=== PATIENT | female | born 1985 | race Caucasian/White ===

== ENCOUNTER 2018-10-20 20:03 | Emergency (ER) | payer BC ==
[2018-10-20 21:50] LABS: CHLORIDE,CL 104 mmol/L (98-107); SODIUM,NA 138 mmol/L (136-145)
--- NOTE | 2018-10-20 22:18 | EDM.PDOC ---
ED HPI GENERAL MEDICAL PROBLEM - General Chief Complaint: Chest Pain Stated Complaint: CHEST PAINS, SHORTNESS IN BREATH Time Seen by Provider: 10/20/18 20:10 Source of Information: Reports: Patient History Limitations: Reports: No Limitations - History of Present Illness INITIAL COMMENTS - FREE TEXT/NARRATIVE: Presents to the emergency room reporting skipped beats. She states that she had this once previously and she told was told she had a panic attack after evaluation. In that event it was palpitations now she states she has skipped beats. She reports no recent anxiety or stress. When she is on her week on work she drinks a pot of coffee per 12 hour shift. On her days off she drinks much less. She denies other drug use. chest Pain Score (Numeric/FACES): 2 - Related Data Allergies Allergy/AdvReac Type Severity Reaction Status Date / Time No Known Allergies Allergy Verified 10/20/18 20:16 Home Meds: Home Meds . 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: Musculoskeletal History: Reports: None Neurological History: Reports: None Psychiatric History: Reports: Anxiety Endocrine/Metabolic History: Reports: None Hematologic History: Reports: None Immunologic History: Reports: None Oncologic (Cancer) History: Reports: None Dermatologic History: Reports: None - Infectious Disease History Infectious Disease History: Reports: None - Past Surgical History Head Surgeries/Procedures: Reports: None Social & Family History - Family History Family Medical History: Noncontributory - Tobacco Use Smoking Status *Q: Current Every Day Smoker Years of Tobacco use: 10 Packs/Tins Daily: 1 - Caffeine Use Caffeine Use: Reports: Coffee - Recreational Drug Use Recreational Drug Use: No ED ROS GENERAL - Review of Systems Review Of Systems: ROS reveals no pertinent complaints other than HPI. ED EXAM, GENERAL - Physical Exam Exam: See Below Exam Limited By: No Limitations General Appearance: Alert, No Apparent Distress Ears: Normal External Exam, Normal TMs Nose: Normal Inspection Throat/Mouth: Normal Inspection Head: Atraumatic, Normocephalic Neck: Normal Inspection Respiratory/Chest: No Respiratory Distress, Lungs Clear, Normal Breath Sounds Cardiovascular: Normal Peripheral Pulses, Regular Rate, Rhythm, No Murmur, Other (No skipped beats to auscultation) GI/Abdominal: Soft Extremities: Normal Inspection, No Pedal Edema Neurological: Alert, Oriented Psychiatric: Normal Affect, Normal Mood Skin Exam: Warm, Dry, Intact, Normal Color, No Rash Lymphatic: No Adenopathy Course - Vital Signs Last Recorded V/S: Last Vital Signs Temp 36.4 C 10/20/18 20:16 Pulse 73 10/20/18 20:16 Resp 18 10/20/18 20:16 BP 135/88 10/20/18 20:16 Pulse Ox 98 10/20/18 20:16 - Orders/Labs/Meds Labs: Laboratory Tests 10/20/18 Range/Units 21:10 Sodium 138 (136-145) mmol/L Potassium 4.1 (3.5-5.1) mmol/L Chloride 104 (98-107) mmol/L Carbon Dioxide 26.0 (21.0-32.0) mmol/L BUN 11 (7.0-18.0) mg/dL Creatinine 0.9 (0.6-1.0) mg/dL Est Cr Clr Drug Dosing 82.25 mL/min Estimated GFR (MDRD) > 60.0 ml/min Glucose 93 (74-106) mg/dL Calcium 9.2 (8.5-10.1) mg/dL Total Bilirubin 0.3 (0.2-1.0) mg/dL AST 28 (15-37) IU/L ALT 33 (14-63) IU/L Alkaline Phosphatase 124 H (46-116) U/L Troponin I < 0.050 (0.000-0.056) ng/mL Total Protein 7.1 (6.4-8.2) g/dL Albumin 3.6 (3.4-5.0) g/dL Globulin 3.5 (2.6-4.0) g/dL Albumin/Globulin Ratio 1.0 (0.9-1.6) TSH 3rd Generation 2.89 (0.36-3.74) uIU/mL Departure - Departure Time of Disposition: 22:16 Disposition: Home, Self-Care 01 Condition: Good Clinical Impression: Skipped heart beats Referrals: PCP,None [Primary Care Provider] - [facility] [Outside] [facility] [Outside] Additional Instructions: 1. You must follow-up in primary care. Make an appointment tomorrow morning. 2. Discontinue caffeine use
[2018-10-21 05:24] VITALS: BP 127/82
== END 2018-10-20 22:25 | disposition home or self-care (01) ==
LOC: MW.ED 20:03
DX: R00.8 Other abnormalities of heart beat (principal); F17.210 Nicotine dependence, cigarettes, uncomplicated
CPT/HCPCS: 36415; 80053; 84443; 84484; 93005; 99284

== ENCOUNTER 2020-01-13 14:29 | Inpatient (IN) | payer BC ==
[2020-01-13] MEDS ORDERED: Sodium Chloride 0.9% 10 ML Syringe FLUSH PRN (15:03)
[2020-01-13] MEDS ORDERED: Ondansetron 4 MG/2 ML SDV IVPUSH ONE (15:03)
[2020-01-13] MEDS ORDERED: Sodium Chloride 0.9% 1,000 ML IV ONE (15:03)
[2020-01-13] MEDS ORDERED: Sodium Chloride 0.9% 2.5 ML Syringe FLUSH PRN ×2 (15:03)
[2020-01-13] MEDS ORDERED: Famotidine 20 MG/2 ML SDV IVPUSH ONE (15:04)
[2020-01-13] MEDS ORDERED: Morphine 4 MG/ML Syringe IVPUSH ONE (15:04)
--- NOTE | 2020-01-13 15:09 | EDM.PDOC ---
ED HPI GENERAL MEDICAL PROBLEM - General Chief Complaint: Abdominal Pain Stated Complaint: REFERRED FROM [facility] LOWER ABDOMIMNAL PAIN Time Seen by Provider: 01/13/20 14:41 - History of Present Illness INITIAL COMMENTS - FREE TEXT/NARRATIVE: History of present illness: [Presents with epigastric abdominal pain that is been waxing and waning over the past 2 weeks is worse at night does not seem to be affected by eating it is sharp in nature no diarrhea she has had one episode of nausea and vomiting with the pain the pain does not radiate nothing seems to make it better or worse it has gotten worse over the past 2 days and today it has been unrelenting. No prior surgeries no other medical problems] Review of systems: As per history of present illness and below otherwise all systems reviewed and negative. Past medical history: As per history of present illness and as reviewed below otherwise noncontributory. Surgical history: As per history of present illness and as reviewed below otherwise noncontributory. Social history: No reported history of drug or alcohol abuse. Family history: As per history of present illness and as reviewed below otherwise noncontributory. Physical exam: HEENT: Atraumatic, normocephalic, pupils reactive, negative for conjunctival pallor or scleral icterus, mucous membranes moist, throat clear, neck supple, nontender, trachea midline. Lungs: Clear to auscultation, breath sounds equal bilaterally, chest nontender. Heart: S1S2, regular, negative for clicks, rubs, or JVD. Abdomen: Soft, nondistended, gastric tenderness without guarding or rebound. Negative for masses or hepatosplenomegaly. Negative for costovertebral tenderness. Negative Arce Pelvis: Stable nontender. Genitourinary: Deferred. Rectal: Deferred. Extremities: Atraumatic, negative for cords or calf pain. Neurovascular unremarkable. Neuro: Awake, alert, oriented. Cranial nerves II through XII unremarkable. Cerebellum unremarkable. Motor and sensory unremarkable throughout. Exam nonfocal. Diagnostics: [] Therapeutics: [] Impression: Epigastric pain [] Plan: Patient will be given medicine for pain and nausea and reflux labs will be obtained she will be reassessed [] Definitive disposition and diagnosis as appropriate pending reevaluation and review of above. Epigastric Pain Score (Numeric/FACES): 8 - Related Data Allergies Allergy/AdvReac Type Severity Reaction Status Date / Time No Known Allergies Allergy Verified 01/13/20 14:52 Home Meds: Home Meds . 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: Musculoskeletal History: Reports: None Neurological History: Reports: None Psychiatric History: Reports: Anxiety Endocrine/Metabolic History: Reports: None Hematologic History: Reports: None Immunologic History: Reports: None Oncologic (Cancer) History: Reports: None Dermatologic History: Reports: None - Infectious Disease History Infectious Disease History: Reports: None - Past Surgical History Head Surgeries/Procedures: Reports: None HEENT Surgical History: Reports: Tonsillectomy Social & Family History - Family History Family Medical History: Noncontributory - Tobacco Use Smoking Status *Q: Current Every Day Smoker Years of Tobacco use: 10 Packs/Tins Daily: 1 - Caffeine Use Caffeine Use: Reports: None - Recreational Drug Use Recreational Drug Use: No ED ROS GENERAL - Review of Systems Review Of Systems: See Below ED EXAM, GENERAL - Physical Exam Exam: See Below Course - Vital Signs Text/Narrative:: CT of the abdomen and pelvis was concerning for gallbladder disease. And follow -up ultrasound was obtained that showed thickened wall with pericholecystic fluid gallbladder stones and sludge. The case with general surgery Dr. Buckner will admit the patient. Last Recorded V/S: Last Vital Signs Temp 36.6 C 01/13/20 17:20 Pulse 81 01/13/20 18:31 Resp 17 01/13/20 18:31 BP 150/75 H 01/13/20 18:31 Pulse Ox 99 01/13/20 18:31 - Orders/Labs/Meds Orders: Active Orders 24 hr Category Date Time Status Patient Status [ADT] Routine ADT 01/13/20 18:31 Active May Shower [RC] ASDIRECTED Care 01/13/20 18:31 Active Oxygen Therapy [RC] PRN Care 01/13/20 18:31 Active RT Incentive Spirometry [RC] Q1HWA Care 01/13/20 18:31 Active Up ad Rochelle [RC] ASDIRECTED Care 01/13/20 18:31 Active Vital Signs [RC] PER UNIT ROUTINE Care 01/13/20 18:31 Active Clear Liquid Diet [DIET] Diet 01/13/20 Dinner Active NPO After Midnight [Nothing per Oral After Midnight Diet 01/14/20 Breakfast Active Diet] [DIET] CBC W/O DIFF,HEMOGRAM [HEME] AM Lab 01/14/20 05:11 Ordered COMPREHENSIVE METABOLIC PN,CMP [CHEM] AM Lab 01/14/20 05:11 Ordered Acetaminophen/HYDROcodone [[place] 325-5 MG] Med 01/13/20 18:31 Active 2 tab PO Q4H PRN HYDROmorphone [Dilaudid] Med 01/13/20 18:31 Active 0.5 mg IVPUSH Q1H PRN Lactated Ringers [Ringers, Lactated] 1,000 ml Med 01/13/20 18:45 Active IV ASDIRECTED Morphine Med 01/13/20 17:47 Active 4 mg IVPUSH Q2H PRN Ondansetron [Zofran] Med 01/13/20 18:31 Active 4 mg IVPUSH Q6H PRN Piperacillin/Tazobactam [Piperacil-Tazobact] 3.375 gm Med 01/13/20 18:45 Active Sodium Chloride 0.9% [Normal Saline] 50 ml IV Q6H Scopolamine [Transderm-Scop] Med 01/13/20 18:45 Active 1.5 mg TRDERM Q72H Sodium Chloride 0.9% [Normal Saline] 1,000 ml Med 01/13/20 18:00 Active IV ASDIRECTED Sodium Chloride 0.9% [Saline Flush] Med 01/13/20 15:03 Active 10 ml FLUSH ASDIRECTED PRN Sodium Chloride 0.9% [Saline Flush] Med 01/13/20 15:03 Active 2.5 ml FLUSH ASDIRECTED PRN Sodium Chloride 0.9% [Saline Flush] Med 01/13/20 15:03 Active 2.5 ml FLUSH ASDIRECTED PRN diphenhydrAMINE [Benadryl] Med 01/13/20 18:31 Active 25 mg IVPUSH Q4H PRN Saline Lock Insert [OM.PC] Stat Oth 01/13/20 15:03 Ordered Resuscitation Status Routine Resus Stat 01/13/20 18:31 Ordered Medication Orders Hydrocodone Bitart/Acetaminophen ([place] 325-5 Mg) 2 tab PO Q4H PRN PRN Reason: Pain (moderate 4-6) Diphenhydramine HCl (Benadryl) 25 mg IVPUSH Q4H PRN PRN Reason: Itching Hydromorphone HCl (Dilaudid) 0.5 mg IVPUSH Q1H PRN PRN Reason: Pain (severe 7-10) Last Admin: 01/13/20 18:44 Dose: 0.5 mg Sodium Chloride (Normal Saline) 1,000 mls @ 125 mls/hr IV ASDIRECTED PHILIP Last Admin: 01/13/20 18:03 Dose: 125 mls/hr Lactated Ringer's (Ringers, Lactated) 1,000 mls @ 125 mls/hr IV ASDIRECTED [facility] Piperacillin Sod/Tazobactam (Sod 3.375 gm/ Sodium Chloride) 50 mls @ 100 mls/ hr IV Q6H [facility] Last Admin: 01/13/20 18:45 Dose: 100 mls/hr Morphine Sulfate (Morphine) 4 mg IVPUSH Q2H PRN PRN Reason: Pain (moderate 4-6) Last Admin: 01/13/20 18:02 Dose: 4 mg Ondansetron HCl (Zofran) 4 mg IVPUSH Q6H PRN PRN Reason: Nausea/Vomiting Scopolamine (Transderm-Scop) 1.5 mg TRDERM Q72H [facility] Sodium Chloride (Saline Flush) 2.5 ml FLUSH ASDIRECTED PRN PRN Reason: Keep Vein Open Last Admin: 01/13/20 18:02 Dose: 2.5 ml Sodium Chloride (Saline Flush) 10 ml FLUSH ASDIRECTED PRN PRN Reason: Keep Vein Open Last Admin: 01/13/20 18:02 Dose: 10 ml Sodium Chloride (Saline Flush) 2.5 ml FLUSH ASDIRECTED PRN PRN Reason: Keep Vein Open Last Admin: 01/13/20 18:02 Dose: 2.5 ml Labs: Laboratory Tests 01/13/20 01/13/20 01/13/20 Range/Units 15:10 15:10 15:17 WBC 15.13 H (4.0-11.0) K/uL RBC 4.64 (4.30-5.90) M/uL Hgb 15.6 (12.0-16.0) g/dL Hct 46.5 H (36.0-46.0) % MCV 100.2 H (80.0-98.0) fL MCH 33.6 H (27.0-32.0) pg MCHC 33.5 (31.0-37.0) g/dL RDW Std Deviation 54.7 (28.0-62.0) fl RDW Coeff of Marielena 15 (11.0-15.0) % Plt Count 242 (150-400) K/uL MPV 10.00 (7.40-12.00) fL Neut % (Auto) 78.6 (48.0-80.0) % Lymph % (Auto) 14.0 L (16.0-40.0) % [place] % (Auto) 6.6 (0.0-15.0) % Eos % (Auto) 0.5 (0.0-7.0) % Baso % (Auto) 0.3 (0.0-1.5) % Neut # (Auto) 11.9 H (1.4-5.7) K/uL Lymph # (Auto) 2.1 (0.6-2.4) K/uL [place] # (Auto) 1.0 H (0.0-0.8) K/uL Eos # (Auto) 0.1 (0.0-0.7) K/uL Baso # (Auto) 0.0 (0.0-0.1) K/uL Nucleated RBC % 0.0 /100WBC Nucleated RBCs # 0 K/uL Sodium (136-145) mmol/L Potassium (3.5-5.1) mmol/L Chloride (98-107) mmol/L Carbon Dioxide (21.0-32.0) mmol/L BUN (7.0-18.0) mg/dL Creatinine (0.6-1.0) mg/dL Est Cr Clr Drug Dosing mL/min Estimated GFR (MDRD) ml/min Glucose (74-106) mg/dL Calcium (8.5-10.1) mg/dL Total Bilirubin (0.2-1.0) mg/dL AST (15-37) IU/L ALT (14-63) IU/L Alkaline Phosphatase (46-116) U/L Total Protein (6.4-8.2) g/dL Albumin (3.4-5.0) g/dL Globulin (2.6-4.0) g/dL Albumin/Globulin Ratio (0.9-1.6) Lipase (73-393) U/L Urine Color YELLOW Urine Appearance SLT CLOUDY Urine pH 5.5 (5.0-8.0) Ur Specific [place] >= 1.030 (1.001-1.035) Urine Protein NEGATIVE (NEGATIVE) mg/dL Urine Glucose (UA) NEGATIVE (NEGATIVE) mg/dL Urine Ketones 15 H (NEGATIVE) mg/dL Urine Occult Blood TRACE-INTACT H (NEGATIVE) Urine Nitrite NEGATIVE (NEGATIVE) Urine Bilirubin NEGATIVE (NEGATIVE) Urine Urobilinogen 0.2 (<2.0) EU/dL Ur Leukocyte Esterase NEGATIVE (NEGATIVE) Urine RBC 1-4 (0-2/HPF) Urine WBC 0-3 (0-5/HPF) Ur Epithelial Cells FEW (NONE-FEW) Urine Bacteria 2+ H (NEGATIVE) Urinalysis Comment Urine HCG, Qual NEGATIVE (NEGATIVE) 01/13/20 Range/Units 15:17 WBC (4.0-11.0) K/uL RBC (4.30-5.90) M/uL Hgb (12.0-16.0) g/dL Hct (36.0-46.0) % MCV (80.0-98.0) fL MCH (27.0-32.0) pg MCHC (31.0-37.0) g/dL RDW Std Deviation (28.0-62.0) fl RDW Coeff of Marielena (11.0-15.0) % Plt Count (150-400) K/uL MPV (7.40-12.00) fL Neut % (Auto) (48.0-80.0) % Lymph % (Auto) (16.0-40.0) % [place] % (Auto) (0.0-15.0) % Eos % (Auto) (0.0-7.0) % Baso % (Auto) (0.0-1.5) % Neut # (Auto) (1.4-5.7) K/uL Lymph # (Auto) (0.6-2.4) K/uL [place] # (Auto) (0.0-0.8) K/uL Eos # (Auto) (0.0-0.7) K/uL Baso # (Auto) (0.0-0.1) K/uL Nucleated RBC % /100WBC Nucleated RBCs # K/uL Sodium 138 (136-145) mmol/L Potassium 3.9 (3.5-5.1) mmol/L Chloride 101 (98-107) mmol/L Carbon Dioxide 25.4 (21.0-32.0) mmol/L BUN 8 (7.0-18.0) mg/dL Creatinine 0.8 (0.6-1.0) mg/dL Est Cr Clr Drug Dosing 90.84 mL/min Estimated GFR (MDRD) > 60.0 ml/min Glucose 102 (74-106) mg/dL Calcium 8.9 (8.5-10.1) mg/dL Total Bilirubin 0.8 (0.2-1.0) mg/dL AST 69 H (15-37) IU/L ALT 60 (14-63) IU/L Alkaline Phosphatase 144 H (46-116) U/L Total Protein 7.3 (6.4-8.2) g/dL Albumin 4.0 (3.4-5.0) g/dL Globulin 3.3 (2.6-4.0) g/dL Albumin/Globulin Ratio 1.2 (0.9-1.6) Lipase 123 (73-393) U/L Urine Color Urine Appearance Urine pH (5.0-8.0) Ur Specific [place] (1.001-1.035) Urine Protein (NEGATIVE) mg/dL Urine Glucose (UA) (NEGATIVE) mg/dL Urine Ketones (NEGATIVE) mg/dL Urine Occult Blood (NEGATIVE) Urine Nitrite (NEGATIVE) Urine Bilirubin (NEGATIVE) Urine Urobilinogen (<2.0) EU/dL Ur Leukocyte Esterase (NEGATIVE) Urine RBC (0-2/HPF) Urine WBC (0-5/HPF) Ur Epithelial Cells (NONE-FEW) Urine Bacteria (NEGATIVE) Urinalysis Comment Urine HCG, Qual (NEGATIVE) Meds: Medications Generic Name Dose Route Start Last Admin Trade Name Freq PRN Reason Stop Dose Admin Hydrocodone Bitart/Acetaminophen 2 tab 01/13/20 18:31 [place] 325-5 Mg PO Q4H PRN Pain (moderate 4-6) Diphenhydramine HCl 25 mg 01/13/20 18:31 Benadryl IVPUSH Q4H PRN Itching Hydromorphone HCl 0.5 mg 01/13/20 18:31 01/13/20 18:44 Dilaudid IVPUSH 0.5 mg Q1H PRN Administration Pain (severe 7-10) Sodium Chloride 1,000 mls @ 125 mls/hr 01/13/20 18:00 01/13/20 18:03 Normal Saline IV 125 mls/hr ASDIRECTED PHILIP Administration Lactated Ringer's 1,000 mls @ 125 mls/hr 01/13/20 18:45 Ringers, Lactated IV ASDIRECTED PHILIP Piperacillin Sod/Tazobactam 50 mls @ 100 mls/hr 01/13/20 18:45 01/13/20 18:45 Sod 3.375 gm/ Sodium Chloride IV 100 mls/hr Q6H PHILIP Administration Morphine Sulfate 4 mg 01/13/20 17:47 01/13/20 18:02 Morphine IVPUSH 4 mg Q2H PRN Administration Pain (moderate 4-6) Ondansetron HCl 4 mg 01/13/20 18:31 Zofran IVPUSH Q6H PRN Nausea/Vomiting Scopolamine 1.5 mg 01/13/20 18:45 Transderm-Scop TRDERM Q72H PHILIP Sodium Chloride 2.5 ml 01/13/20 15:03 01/13/20 18:02 Saline Flush FLUSH 2.5 ml ASDIRECTED PRN Administration Keep Vein Open Sodium Chloride 10 ml 01/13/20 15:03 01/13/20 18:02 Saline Flush FLUSH 10 ml ASDIRECTED PRN Administration Keep Vein Open Sodium Chloride 2.5 ml 01/13/20 15:03 01/13/20 18:02 Saline Flush FLUSH 2.5 ml ASDIRECTED PRN Administration Keep Vein Open Discontinued Medications Generic Name Dose Route Start Last Admin Trade Name Freq PRN Reason Stop Dose Admin Famotidine 20 mg 01/13/20 15:04 01/13/20 15:17 Pepcid IVPUSH 01/13/20 15:05 20 mg ONETIME ONE Administration Sodium Chloride 1,000 mls @ 999 mls/hr 01/13/20 15:03 01/13/20 15:17 Normal Saline IV 01/13/20 16:03 999 mls/hr BOLUS ONE Administration Iopamidol 100 ml 01/13/20 18:16 01/13/20 18:16 Isovue-370 (76%) IVPUSH 01/13/20 18:17 100 ml ONETIME ONE Administration Morphine Sulfate 4 mg 01/13/20 15:04 01/13/20 15:17 Morphine IVPUSH 01/13/20 15:05 4 mg ONETIME ONE Administration Ondansetron HCl 4 mg 01/13/20 15:03 01/13/20 15:17 Zofran IVPUSH 01/13/20 15:04 4 mg ONETIME ONE Administration Departure - Departure Time of Disposition: 18:49 Disposition: Admitted As Inpatient 68 Condition: Good Clinical Impression: Cholecystitis Abdominal pain Qualifiers: Abdominal location: upper abdomen, unspecified Qualified Code(s): R10.10 - Upper abdominal pain, unspecified - Discharge Information *PRESCRIPTION DRUG MONITORING PROGRAM REVIEWED*: Not Applicable *COPY OF PRESCRIPTION DRUG MONITORING REPORT IN PATIENT CHAD: Not Applicable Instructions: Abdominal Pain, Adult, [id number] Referrals: Nicole Albarado MD [Primary Care Provider] - Forms: ED Department Discharge Additional Instructions: The following information is given to patients seen in the emergency department who are being discharged to home. This information is to outline your options for follow-up care. We provide all patients seen in our emergency department with a follow-up referral. The need for follow-up, as well as the timing and circumstances, are variable depending upon the specifics of your emergency department visit. If you don't have a primary care physician on staff, we will provide you with a referral. We always advise you to contact your personal physician following an emergency department visit to inform them of the circumstance of the visit and for follow-up with them and/or the need for any referrals to a consulting specialist. The emergency department will also refer you to a specialist when appropriate. This referral assures that you have the opportunity for follow-up care with a specialist. All of these measure are taken in an effort to provide you with optimal care, which includes your follow-up. Under all circumstances we always encourage you to contact your private physician who remains a resource for coordinating your care. When calling for follow-up care, please make the office aware that this follow-up is from your recent emergency room visit. If for any reason you are refused follow-up, please contact the [facility] Emergency Department at and asked to speak to the emergency department charge nurse. [facility] [address] [place] [address] [facility] [address] [place] [id number] Sepsis Event Note - Evaluation Sepsis Screening Result: No Definite Risk - Focused Exam Vital Signs: Vital Signs Temp Pulse Resp BP Pulse Ox 01/13/20 18:31 81 17 150/75 H 99 01/13/20 17:20 36.6 C 86 18 154/110 H 98 01/13/20 14:52 36.6 C 97 17 146/116 H 98 Date Exam was Performed: 01/13/20 Time Exam was Performed: 18:48 - My Orders Last 24 Hours: My Active Orders 01/13/20 15:03 Sodium Chloride 0.9% [Saline Flush] 10 ml FLUSH ASDIRECTED PRN Sodium Chloride 0.9% [Saline Flush] 2.5 ml FLUSH ASDIRECTED PRN Sodium Chloride 0.9% [Saline Flush] 2.5 ml FLUSH ASDIRECTED PRN Saline Lock Insert [OM.PC] Stat 01/13/20 17:47 Morphine 4 mg IVPUSH Q2H PRN 01/13/20 18:00 Sodium Chloride 0.9% [Normal Saline] 1,000 ml IV ASDIRECTED - Assessment/Plan Last 24 Hours: My Active Orders 01/13/20 15:03 Sodium Chloride 0.9% [Saline Flush] 10 ml FLUSH ASDIRECTED PRN Sodium Chloride 0.9% [Saline Flush] 2.5 ml FLUSH ASDIRECTED PRN Sodium Chloride 0.9% [Saline Flush] 2.5 ml FLUSH ASDIRECTED PRN Saline Lock Insert [OM.PC] Stat 01/13/20 17:47 Morphine 4 mg IVPUSH Q2H PRN 01/13/20 18:00 Sodium Chloride 0.9% [Normal Saline] 1,000 ml IV ASDIRECTED
[2020-01-13 16:08] LABS: BLOOD UREA NITROGEN,BUN 8 mg/dL (7.0-18.0); CARBON DIOXIDE,CO2 25.4 mmol/L (21.0-32.0); CHLORIDE,CL 101 mmol/L (98-107); GLUCOSE RANDOM 102 mg/dL (74-106); LIPASE 123 U/L (73-393); POTASSIUM,K 3.9 mmol/L (3.5-5.1); SODIUM,NA 138 mmol/L (136-145)
--- NOTE | 2020-01-13 17:09 | CT ---
CT abdomen and pelvis Technique: Multiple axial sections were obtained from above the dome of the diaphragm inferiorly through the pubic symphysis. Intravenous contrast was utilized. No oral contrast has been given. Comparison: No previous abdominal imaging is available. Findings: Visualized lung bases show nothing acute. Liver shows diffuse fatty infiltration with no focal abnormality. Gallbladder is somewhat distended and shows no calcified gallstones. Adrenal glands show no nodule. Pancreas shows no discrete abnormality. Kidneys show symmetric contrast enhancement without hydronephrosis or mass. Aorta shows no aneurysm. No retroperitoneal adenopathy or mesenteric abnormalities are seen. No pelvic mass or adenopathy is seen. No free fluid or inflammatory change is seen. Appendix is seen which is normal in size. Cyst is noted within the left ovary measuring approximately 2.9 cm in size. No free fluid or inflammatory change is appreciated. Bone window settings shows scoliosis within the spine. No acute osseous finding is appreciated. Impression: 1. Gallbladder appears somewhat distended. Please correlate if patient has any gallbladder symptoms to indicate ultrasound exam. 2. Fatty infiltration within the liver. Other findings as noted above. 3. Nothing acute is otherwise seen on CT study of the abdomen and pelvis. Diagnostic code #3 This report was dictated in MDT
[2020-01-13] MEDS ORDERED: Sodium Chloride 0.9% 1,000 ML IV SCH (18:00)
[2020-01-13] MEDS: Morphine 4 MG/ML Syringe IVPUSH PRN (18:02)
--- NOTE | 2020-01-13 18:10 | US ---
Limited abdominal ultrasound: Multiple real-time images of the upper right abdomen were obtained. Comparison: Prior CT abdomen and pelvis study performed earlier on the same day (4:49 PM). Gallbladder shows evidence of gallstones. Gallbladder wall is thickened with gallbladder edema being seen. Common bile duct measures normal at 5 mm. Liver is generous in size and is echogenic compatible with fatty infiltration. Pancreas is incompletely seen. Visualized portions of the pancreas are within normal limits. Right kidney shows no hydronephrosis or mass. Right kidney has a length of 11.0 cm. Inferior vena cava is patent. Aorta shows no aneurysm. Impression: 1. Gallstones with gallbladder wall thickening and gallbladder wall edema. No biliary duct dilatation is seen. Findings are suspicious for acute cholecystitis. Please correlate with the patient's symptoms. 2. Generous sized liver with fatty infiltration. 3. No additional abnormality is identified on right upper quadrant abdominal ultrasound exam. Diagnostic code #3 This report was dictated in MDT
[2020-01-13] MEDS ORDERED: Iopamidol 755 Mg/ML 100 ML Bottle IVPUSH ONE (18:16)
[2020-01-13] MEDS ORDERED: Ondansetron 4 MG/2 ML SDV IVPUSH PRN (18:31)
[2020-01-13] MEDS ORDERED: diphenhydrAMINE 50 MG/ML SDV IVPUSH PRN (18:31)
[2020-01-13] MEDS ORDERED: Acetaminophen/HYDROcodone 325-5 MG Tab PO PRN (18:31)
[2020-01-13] MEDS ORDERED: ceFAZolin 1 GM Vial IV ONE (18:32)
[2020-01-13] MEDS: HYDROmorphone 2 MG/ML Syringe IVPUSH PRN ×2 (18:44→21:23)
--- NOTE | 2020-01-13 18:44 | PCM.HP.2 ---
H&P History of Present Illness - General Date of Service: 01/13/20 Admit Problem/Dx: Admission Diagnosis/Problem Admission Diagnosis/Problem Acute cholecystitis Source of Information: Patient History Limitations: Reports: No Limitations - History of Present Illness Initial Comments - Free Text/Narative: Patient is a 34 year old female who present with epigastric abdominal pain. She has had epigastric pain that wakes her in the middle of the night for several months now. It lasts 3-4 hours before relenting. Last night the pain persisted and was more severe. She denies fevers, chills, nausea or vomiting. She presented to the ER. She was hypertensive. CBC showed an elevated leukocytosis of 15K. She had mildly elevated alk phos. CT abdomen pelvis showed a distended gallbladder. US showed small stones and sludge with a thickened wall. She was given morphine with no relief in her pain. As a side note, she did strain her back as well today and complains of lower back discomfort as well. Epigastric Pain Score (Numeric/FACES): 8 - Related Data Allergies/Adverse Reactions: Allergies Allergy/AdvReac Type Severity Reaction Status Date / Time No Known Allergies Allergy Verified 01/13/20 14:52 Home Medications: Home Meds . 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: Musculoskeletal History: Reports: None Neurological History: Reports: None Psychiatric History: Reports: Anxiety Endocrine/Metabolic History: Reports: None Hematologic History: Reports: None Immunologic History: Reports: None Oncologic (Cancer) History: Reports: None Dermatologic History: Reports: None - Infectious Disease History Infectious Disease History: Reports: None - Past Surgical History Head Surgeries/Procedures: Reports: None HEENT Surgical History: Reports: Tonsillectomy Social & Family History - Family History Family Medical History: Noncontributory - Tobacco Use Smoking Status *Q: Current Every Day Smoker Years of Tobacco use: 10 Packs/Tins Daily: 1 - Caffeine Use Caffeine Use: Reports: None - Recreational Drug Use Recreational Drug Use: No H&P Review of Systems - Review of Systems: Review Of Systems: Comprehensive ROS is negative, except as noted in HPI. Exam - Exam Exam: See Below - Vital Signs Vital Signs: Last Vital Signs Temp 36.6 C 01/13/20 17:20 Pulse 81 01/13/20 18:31 Resp 17 01/13/20 18:31 BP 150/75 H 01/13/20 18:31 Pulse Ox 99 01/13/20 18:31 Weight: 89 kg - Exam General: Alert, Oriented HEENT: Conjunctiva Clear, Mucosa Moist & [place], Posterior Pharynx Clear Neck: Supple, Trachea Midline Lungs: Clear to Auscultation, Normal Respiratory Effort Cardiovascular: Regular Rate, Regular Rhythm GI/Abdominal Exam: Soft, No Distention, No Mass, Tender (RUQ and epigastric area ), Other (Positive bell's sign ) Extremities: Normal Inspection - Patient Data Lab Results Last 24 hrs: Laboratory Results - last 24 hr 01/13/20 01/13/20 01/13/20 Range/Units 15:10 15:10 15:17 WBC 15.13 H (4.0-11.0) K/uL RBC 4.64 (4.30-5.90) M/uL Hgb 15.6 (12.0-16.0) g/dL Hct 46.5 H (36.0-46.0) % MCV 100.2 H (80.0-98.0) fL MCH 33.6 H (27.0-32.0) pg MCHC 33.5 (31.0-37.0) g/dL RDW Std Deviation 54.7 (28.0-62.0) fl RDW Coeff of Marielena 15 (11.0-15.0) % Plt Count 242 (150-400) K/uL MPV 10.00 (7.40-12.00) fL Neut % (Auto) 78.6 (48.0-80.0) % Lymph % (Auto) 14.0 L (16.0-40.0) % [place] % (Auto) 6.6 (0.0-15.0) % Eos % (Auto) 0.5 (0.0-7.0) % Baso % (Auto) 0.3 (0.0-1.5) % Neut # (Auto) 11.9 H (1.4-5.7) K/uL Lymph # (Auto) 2.1 (0.6-2.4) K/uL [place] # (Auto) 1.0 H (0.0-0.8) K/uL Eos # (Auto) 0.1 (0.0-0.7) K/uL Baso # (Auto) 0.0 (0.0-0.1) K/uL Nucleated RBC % 0.0 /100WBC Nucleated RBCs # 0 K/uL Sodium (136-145) mmol/L Potassium (3.5-5.1) mmol/L Chloride (98-107) mmol/L Carbon Dioxide (21.0-32.0) mmol/L BUN (7.0-18.0) mg/dL Creatinine (0.6-1.0) mg/dL Est Cr Clr Drug Dosing mL/min Estimated GFR (MDRD) ml/min Glucose (74-106) mg/dL Calcium (8.5-10.1) mg/dL Total Bilirubin (0.2-1.0) mg/dL AST (15-37) IU/L ALT (14-63) IU/L Alkaline Phosphatase (46-116) U/L Total Protein (6.4-8.2) g/dL Albumin (3.4-5.0) g/dL Globulin (2.6-4.0) g/dL Albumin/Globulin Ratio (0.9-1.6) Lipase (73-393) U/L Urine Color YELLOW Urine Appearance SLT CLOUDY Urine pH 5.5 (5.0-8.0) Ur Specific [place] >= 1.030 (1.001-1.035) Urine Protein NEGATIVE (NEGATIVE) mg/dL Urine Glucose (UA) NEGATIVE (NEGATIVE) mg/dL Urine Ketones 15 H (NEGATIVE) mg/dL Urine Occult Blood TRACE-INTACT H (NEGATIVE) Urine Nitrite NEGATIVE (NEGATIVE) Urine Bilirubin NEGATIVE (NEGATIVE) Urine Urobilinogen 0.2 (<2.0) EU/dL Ur Leukocyte Esterase NEGATIVE (NEGATIVE) Urine RBC 1-4 (0-2/HPF) Urine WBC 0-3 (0-5/HPF) Ur Epithelial Cells FEW (NONE-FEW) Urine Bacteria 2+ H (NEGATIVE) Urinalysis Comment Urine HCG, Qual NEGATIVE (NEGATIVE) 01/13/20 Range/Units 15:17 WBC (4.0-11.0) K/uL RBC (4.30-5.90) M/uL Hgb (12.0-16.0) g/dL Hct (36.0-46.0) % MCV (80.0-98.0) fL MCH (27.0-32.0) pg MCHC (31.0-37.0) g/dL RDW Std Deviation (28.0-62.0) fl RDW Coeff of Marielena (11.0-15.0) % Plt Count (150-400) K/uL MPV (7.40-12.00) fL Neut % (Auto) (48.0-80.0) % Lymph % (Auto) (16.0-40.0) % [place] % (Auto) (0.0-15.0) % Eos % (Auto) (0.0-7.0) % Baso % (Auto) (0.0-1.5) % Neut # (Auto) (1.4-5.7) K/uL Lymph # (Auto) (0.6-2.4) K/uL [place] # (Auto) (0.0-0.8) K/uL Eos # (Auto) (0.0-0.7) K/uL Baso # (Auto) (0.0-0.1) K/uL Nucleated RBC % /100WBC Nucleated RBCs # K/uL Sodium 138 (136-145) mmol/L Potassium 3.9 (3.5-5.1) mmol/L Chloride 101 (98-107) mmol/L Carbon Dioxide 25.4 (21.0-32.0) mmol/L BUN 8 (7.0-18.0) mg/dL Creatinine 0.8 (0.6-1.0) mg/dL Est Cr Clr Drug Dosing 90.84 mL/min Estimated GFR (MDRD) > 60.0 ml/min Glucose 102 (74-106) mg/dL Calcium 8.9 (8.5-10.1) mg/dL Total Bilirubin 0.8 (0.2-1.0) mg/dL AST 69 H (15-37) IU/L ALT 60 (14-63) IU/L Alkaline Phosphatase 144 H (46-116) U/L Total Protein 7.3 (6.4-8.2) g/dL Albumin 4.0 (3.4-5.0) g/dL Globulin 3.3 (2.6-4.0) g/dL Albumin/Globulin Ratio 1.2 (0.9-1.6) Lipase 123 (73-393) U/L Urine Color Urine Appearance Urine pH (5.0-8.0) Ur Specific [place] (1.001-1.035) Urine Protein (NEGATIVE) mg/dL Urine Glucose (UA) (NEGATIVE) mg/dL Urine Ketones (NEGATIVE) mg/dL Urine Occult Blood (NEGATIVE) Urine Nitrite (NEGATIVE) Urine Bilirubin (NEGATIVE) Urine Urobilinogen (<2.0) EU/dL Ur Leukocyte Esterase (NEGATIVE) Urine RBC (0-2/HPF) Urine WBC (0-5/HPF) Ur Epithelial Cells (NONE-FEW) Urine Bacteria (NEGATIVE) Urinalysis Comment Urine HCG, Qual (NEGATIVE) Result Diagrams: 01/13/20 15:17 01/13/20 15:17 Sepsis Event Note - Evaluation Sepsis Screening Result: No Definite Risk - Focused Exam Vital Signs: Vital Signs Temp Pulse Resp BP Pulse Ox 01/13/20 18:31 81 17 150/75 H 99 01/13/20 17:20 36.6 C 86 18 154/110 H 98 01/13/20 14:52 36.6 C 97 17 146/116 H 98 Date Exam was Performed: 01/13/20 Time Exam was Performed: 18:38 - Problem List (1) Acute cholecystitis SNOMED Code(s): 82619506 ICD Code: K81.0 - ACUTE CHOLECYSTITIS Status: Acute Current Visit: Yes Problem List Initiated/Reviewed/Updated: Yes Orders Last 24hrs: Active Orders 24 hr Category Date Time Status Patient Status [ADT] Routine ADT 01/13/20 18:31 Ordered May Shower [RC] ASDIRECTED Care 01/13/20 18:31 Ordered Oxygen Therapy [RC] PRN Care 01/13/20 18:31 Ordered RT Incentive Spirometry [RC] Q1HWA Care 01/13/20 18:31 Ordered Up ad [place] [RC] ASDIRECTED Care 01/13/20 18:31 Ordered Vital Signs [RC] PER UNIT ROUTINE Care 01/13/20 18:31 Ordered Clear Liquid Diet [DIET] Diet 01/13/20 Dinner Ordered NPO After Midnight [Nothing per Oral After Midnight Diet 01/14/20 Breakfast Ordered Diet] [DIET] CBC W/O DIFF,HEMOGRAM [HEME] AM Lab 01/14/20 05:11 Ordered COMPREHENSIVE METABOLIC PN,CMP [CHEM] AM Lab 01/14/20 05:11 Ordered Acetaminophen/HYDROcodone [[place] 325-5 MG] Med 01/13/20 18:31 Ordered 2 tab PO Q4H PRN HYDROmorphone [Dilaudid] Med 01/13/20 18:31 Ordered 0.5 mg IVPUSH Q1H PRN Lactated Ringers @ 125 MLS/HR(1000ml) Med 01/13/20 18:45 Ordered Lactated Ringers [Ringers, Lactated] 1,000 ml IV ASDIRECTED Morphine Med 01/13/20 17:47 Active 4 mg IVPUSH Q2H PRN Ondansetron [Zofran] Med 01/13/20 18:31 Ordered 4 mg IVPUSH Q6H PRN Piperacillin/Tazobactam [Piperacil-Tazobact] 3.375 gm Med 01/13/20 18:45 Ordered Sodium Chloride 0.9% [Normal Saline] 50 ml IV Q6H Scopolamine [Transderm-Scop] Med 01/13/20 18:45 Ordered 1.5 mg TRDERM Q72H Sodium Chloride 0.9% [Normal Saline] 1,000 ml Med 01/13/20 18:00 Active IV ASDIRECTED Sodium Chloride 0.9% [Saline Flush] Med 01/13/20 15:03 Active 10 ml FLUSH ASDIRECTED PRN Sodium Chloride 0.9% [Saline Flush] Med 01/13/20 15:03 Active 2.5 ml FLUSH ASDIRECTED PRN Sodium Chloride 0.9% [Saline Flush] Med 01/13/20 15:03 Active 2.5 ml FLUSH ASDIRECTED PRN diphenhydrAMINE [Benadryl] Med 01/13/20 18:31 Ordered 25 mg IVPUSH Q4H PRN Saline Lock Insert [OM.PC] Stat Oth 01/13/20 15:03 Ordered Resuscitation Status Routine Resus Stat 01/13/20 18:31 Ordered Medication Orders Hydrocodone Bitart/Acetaminophen ([place] 325-5 Mg) 2 tab PO Q4H PRN PRN Reason: Pain (moderate 4-6) Diphenhydramine HCl (Benadryl) 25 mg IVPUSH Q4H PRN PRN Reason: Itching Hydromorphone HCl (Dilaudid) 0.5 mg IVPUSH Q1H PRN PRN Reason: Pain (severe 7-10) Sodium Chloride (Normal Saline) 1,000 mls @ 125 mls/hr IV ASDIRECTED [facility] Last Admin: 01/13/20 18:03 Dose: 125 mls/hr Lactated Ringer's (Ringers, Lactated) 1,000 mls @ 125 mls/hr IV ASDIRECTED [facility] Piperacillin Sod/Tazobactam (Sod 3.375 gm/ Sodium Chloride) 50 mls @ 100 mls/ hr IV Q6H [facility] Morphine Sulfate (Morphine) 4 mg IVPUSH Q2H PRN PRN Reason: Pain (moderate 4-6) Last Admin: 01/13/20 18:02 Dose: 4 mg Ondansetron HCl (Zofran) 4 mg IVPUSH Q6H PRN PRN Reason: Nausea/Vomiting Scopolamine (Transderm-Scop) 1.5 mg TRDERM Q72H [facility] Sodium Chloride (Saline Flush) 2.5 ml FLUSH ASDIRECTED PRN PRN Reason: Keep Vein Open Last Admin: 01/13/20 18:02 Dose: 2.5 ml Sodium Chloride (Saline Flush) 10 ml FLUSH ASDIRECTED PRN PRN Reason: Keep Vein Open Last Admin: 01/13/20 18:02 Dose: 10 ml Sodium Chloride (Saline Flush) 2.5 ml FLUSH ASDIRECTED PRN PRN Reason: Keep Vein Open Last Admin: 01/13/20 18:02 Dose: 2.5 ml Assessment/Plan Comment:: The patient likely has acute cholecystitis. Will admit for pain control, IV antibiotics, IV fluids and bowel rest with clears for tonight. I explained the pathology of biliary disease and need for cholecystectomy for acute cholecystitis. I explained the laparoscopic and possible need for open procedure. I discussed the risks including bleeding infection or damage to surrounding structures. She verbalized understanding and wishes to proceed. Will recheck labs in am.
[2020-01-13] MEDS: Piperacillin/Tazobactam 3.375 GM in Sodium Chloride 0.9% 50 ML IV SCH (18:45)
[2020-01-13] MEDS ORDERED: Scopolamine 1.5 MG Transdermal Patch TRDERM SCH (18:45)
[2020-01-13] MEDS: Lactated Ringers 1,000 ML IV SCH (20:43)
[2020-01-14] MEDS: Piperacillin/Tazobactam 3.375 GM in Sodium Chloride 0.9% 50 ML IV SCH ×4 (01:04→18:14)
[2020-01-14] MEDS: HYDROmorphone 2 MG/ML Syringe IVPUSH PRN ×2 (01:06→07:36)
[2020-01-14 06:36] LABS: BLOOD UREA NITROGEN,BUN 7 mg/dL (7.0-18.0); CARBON DIOXIDE,CO2 28.1 mmol/L (21.0-32.0); CHLORIDE,CL 104 mmol/L (98-107); GLUCOSE RANDOM 99 mg/dL (74-106); POTASSIUM,K 4.2 mmol/L (3.5-5.1); SODIUM,NA 139 mmol/L (136-145)
[2020-01-14] MEDS: Lactated Ringers 1,000 ML IV SCH ×2 (07:20→18:15)
--- NOTE | 2020-01-14 08:07 | PCM.PREANE ---
Preanesthetic Assessment - Anesthesia/Transfusion/Family Hx Anesthesia History: Prior Anesthesia Without Reaction Family History of Anesthesia Reaction: No Transfusion History: No Prior Transfusion(s) - Review of Systems General: Malaise Pulmonary: No Symptoms Cardiovascular: No Symptoms Gastrointestinal: Abdominal Pain Neurological: No Symptoms Other: Reports: None - Physical Assessment NPO Status Date: 01/13/20 Vital Signs: Last Vital Signs Temp 99.5 F 01/14/20 04:00 Pulse 62 01/14/20 04:00 Resp 12 01/14/20 04:00 BP 125/71 01/14/20 04:00 Pulse Ox 90 L 01/14/20 04:00 Height: 5 ft 5 in Weight: 89.1 kg ASA Class: 2 Mental Status: Alert & Oriented x3 Airway Class: Mallampati = 2 Dentition: Reports: Implants (central maxillary) ROM/Head Extension: Full Lungs: Clear to Auscultation, Normal Respiratory Effort Cardiovascular: Regular Rate, Regular Rhythm - Lab Values: Laboratory Last Values WBC 8.88 K/uL (4.0-11.0) 01/14/20 05:40 RBC 3.97 M/uL (4.30-5.90) L 01/14/20 05:40 Hgb 12.8 g/dL (12.0-16.0) 01/14/20 05:40 Hct 40.2 % (36.0-46.0) 01/14/20 05:40 MCV 101.3 fL (80.0-98.0) H 01/14/20 05:40 MCH 32.2 pg (27.0-32.0) H 01/14/20 05:40 MCHC 31.8 g/dL (31.0-37.0) 01/14/20 05:40 RDW Std Deviation 55.5 fl (28.0-62.0) 01/14/20 05:40 RDW Coeff of Marielena 15 % (11.0-15.0) 01/14/20 05:40 Plt Count 213 K/uL (150-400) 01/14/20 05:40 MPV 10.00 fL (7.40-12.00) 01/14/20 05:40 Neut % (Auto) 78.6 % (48.0-80.0) 01/13/20 15:17 Lymph % (Auto) 14.0 % (16.0-40.0) L 01/13/20 15:17 [place] % (Auto) 6.6 % (0.0-15.0) 01/13/20 15:17 Eos % (Auto) 0.5 % (0.0-7.0) 01/13/20 15:17 Baso % (Auto) 0.3 % (0.0-1.5) 01/13/20 15:17 Neut # (Auto) 11.9 K/uL (1.4-5.7) H 01/13/20 15:17 Lymph # (Auto) 2.1 K/uL (0.6-2.4) 01/13/20 15:17 [place] # (Auto) 1.0 K/uL (0.0-0.8) H 01/13/20 15:17 Eos # (Auto) 0.1 K/uL (0.0-0.7) 01/13/20 15:17 Baso # (Auto) 0.0 K/uL (0.0-0.1) 01/13/20 15:17 Nucleated RBC % 0.0 /100WBC 01/14/20 05:40 Nucleated RBCs # 0 K/uL 01/14/20 05:40 Sodium 139 mmol/L (136-145) 01/14/20 05:40 Potassium 4.2 mmol/L (3.5-5.1) 01/14/20 05:40 Chloride 104 mmol/L (98-107) 01/14/20 05:40 Carbon Dioxide 28.1 mmol/L (21.0-32.0) 01/14/20 05:40 BUN 7 mg/dL (7.0-18.0) 01/14/20 05:40 Creatinine 0.9 mg/dL (0.6-1.0) 01/14/20 05:40 Est Cr Clr Drug Dosing 80.75 mL/min 01/14/20 05:40 Estimated GFR (MDRD) > 60.0 ml/min 01/14/20 05:40 Glucose 99 mg/dL (74-106) 01/14/20 05:40 Calcium 8.1 mg/dL (8.5-10.1) L 01/14/20 05:40 Total Bilirubin 1.1 mg/dL (0.2-1.0) H 01/14/20 05:40 AST 45 IU/L (15-37) H 01/14/20 05:40 ALT 47 IU/L (14-63) 01/14/20 05:40 Alkaline Phosphatase 104 U/L (46-116) 01/14/20 05:40 Total Protein 5.7 g/dL (6.4-8.2) L 01/14/20 05:40 Albumin 2.9 g/dL (3.4-5.0) L 01/14/20 05:40 Globulin 2.8 g/dL (2.6-4.0) 01/14/20 05:40 Albumin/Globulin Ratio 1.0 (0.9-1.6) 01/14/20 05:40 Lipase 123 U/L (73-393) 01/13/20 15:17 Urine Color YELLOW 01/13/20 15:10 Urine Appearance SLT CLOUDY 01/13/20 15:10 Urine pH 5.5 (5.0-8.0) 01/13/20 15:10 Ur Specific [place] >= 1.030 (1.001-1.035) 01/13/20 15:10 Urine Protein NEGATIVE mg/dL (NEGATIVE) 01/13/20 15:10 Urine Glucose (UA) NEGATIVE mg/dL (NEGATIVE) 01/13/20 15:10 Urine Ketones 15 mg/dL (NEGATIVE) H 01/13/20 15:10 Urine Occult Blood TRACE-INTACT (NEGATIVE) H 01/13/20 15:10 Urine Nitrite NEGATIVE (NEGATIVE) 01/13/20 15:10 Urine Bilirubin NEGATIVE (NEGATIVE) 01/13/20 15:10 Urine Urobilinogen 0.2 EU/dL (<2.0) 01/13/20 15:10 Ur Leukocyte Esterase NEGATIVE (NEGATIVE) 01/13/20 15:10 Urine RBC 1-4 (0-2/HPF) 01/13/20 15:10 Urine WBC 0-3 (0-5/HPF) 01/13/20 15:10 Ur Epithelial Cells FEW (NONE-FEW) 01/13/20 15:10 Urine Bacteria 2+ (NEGATIVE) H 01/13/20 15:10 Urinalysis Comment 01/13/20 15:10 Urine HCG, Qual NEGATIVE (NEGATIVE) 01/13/20 15:10 - Allergies Allergies/Adverse Reactions: Allergies Allergy/AdvReac Type Severity Reaction Status Date / Time No Known Allergies Allergy Verified 01/13/20 21:17 - Blood Blood Available: No - Anesthesia Plan Pre-Op Medication Ordered: None - Acknowledgements Anesthesia Type Planned: General Anesthesia Pt an Appropriate Candidate for the Planned Anesthesia: Yes Alternatives and Risks of Anesthesia Discussed w Pt/Guardian: Yes Pt/Guardian Understands and Agrees with Anesthesia Plan: Yes Additional Comments: PMH: acute cholecystitis, smoker, BMI=32, preg neg PLAN: GET PreAnesthesia Questionnaire - Past Health History Medical/Surgical History: Denies Medical/Surgical History HEENT History: Reports: None Cardiovascular History: Reports: None Respiratory History: Reports: None Gastrointestinal History: Reports: None Genitourinary History: Reports: 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: Musculoskeletal History: Reports: None Neurological History: Reports: None Psychiatric History: Reports: Anxiety Endocrine/Metabolic History: Reports: None Hematologic History: Reports: None Immunologic History: Reports: None Oncologic (Cancer) History: Reports: None Dermatologic History: Reports: None - Infectious Disease History Infectious Disease History: Reports: None - Past Surgical History Head Surgeries/Procedures: Reports: None HEENT Surgical History: Reports: Tonsillectomy - SUBSTANCE USE Smoking Status *Q: Current Every Day Smoker Tobacco Use Within Last Twelve Months: Cigarettes Recreational Drug Use History: No - HOME MEDS Home Medications: Home Meds . [No Known Home Meds] 06/06/16 [History] - CURRENT (IN HOUSE) MEDS Current Meds: Current Medications Hydrocodone Bitart/Acetaminophen ([place] 325-5 Mg) 2 tab PO Q4H PRN PRN Reason: Pain (moderate 4-6) Diphenhydramine HCl (Benadryl) 25 mg IVPUSH Q4H PRN PRN Reason: Itching Hydromorphone HCl (Dilaudid) 0.5 mg IVPUSH Q1H PRN PRN Reason: Pain (severe 7-10) Last Admin: 01/14/20 07:36 Dose: 0.5 mg Lactated Ringer's (Ringers, Lactated) 1,000 mls @ 125 mls/hr IV ASDIRECTED [facility] Last Admin: 01/14/20 07:20 Dose: 125 mls/hr Piperacillin Sod/Tazobactam (Sod 3.375 gm/ Sodium Chloride) 50 mls @ 100 mls/ hr IV Q6H [facility] Last Admin: 01/14/20 06:06 Dose: 100 mls/hr Morphine Sulfate (Morphine) 4 mg IVPUSH Q2H PRN PRN Reason: Pain (moderate 4-6) Last Admin: 01/13/20 18:02 Dose: 4 mg Ondansetron HCl (Zofran) 4 mg IVPUSH Q6H PRN PRN Reason: Nausea/Vomiting Scopolamine (Transderm-Scop) 1.5 mg TRDERM Q72H [facility] Last Admin: 01/13/20 20:41 Dose: 1.5 mg Sodium Chloride (Saline Flush) 2.5 ml FLUSH ASDIRECTED PRN PRN Reason: Keep Vein Open Last Admin: 01/13/20 18:02 Dose: 2.5 ml Sodium Chloride (Saline Flush) 10 ml FLUSH ASDIRECTED PRN PRN Reason: Keep Vein Open Last Admin: 01/13/20 18:02 Dose: 10 ml Sodium Chloride (Saline Flush) 2.5 ml FLUSH ASDIRECTED PRN PRN Reason: Keep Vein Open Last Admin: 01/13/20 18:02 Dose: 2.5 ml Discontinued Medications Famotidine (Pepcid) 20 mg IVPUSH ONETIME ONE Stop: 01/13/20 15:05 Last Admin: 01/13/20 15:17 Dose: 20 mg Sodium Chloride (Normal Saline) 1,000 mls @ 999 mls/hr IV BOLUS ONE Stop: 01/13/20 16:03 Last Admin: 01/13/20 15:17 Dose: 999 mls/hr Sodium Chloride (Normal Saline) 1,000 mls @ 125 mls/hr IV ASDIRECTED [facility] Last Admin: 01/13/20 18:03 Dose: 125 mls/hr Iopamidol (Isovue-370 (76%)) 100 ml IVPUSH ONETIME ONE Stop: 01/13/20 18:17 Last Admin: 01/13/20 18:16 Dose: 100 ml Morphine Sulfate (Morphine) 4 mg IVPUSH ONETIME ONE Stop: 01/13/20 15:05 Last Admin: 01/13/20 15:17 Dose: 4 mg Ondansetron HCl (Zofran) 4 mg IVPUSH ONETIME ONE Stop: 01/13/20 15:04 Last Admin: 01/13/20 15:17 Dose: 4 mg
[2020-01-14] MEDS ORDERED: Bupivacaine 0.5% 30 ML SDV ONE ×2 (08:29→10:08)
[2020-01-14] MEDS ORDERED: Midazolam 1 MG/ML 2 ML SDV ONE (08:38)
[2020-01-14] MEDS ORDERED: fentaNYL 250 MCG/5 ML SDV ONE (08:38)
[2020-01-14] MEDS ORDERED: Propofol 200 MG/20 ML SDV ONE (08:38)
[2020-01-14] MEDS ORDERED: Rocuronium 100 MG/10 ML Syringe ONE (08:42)
[2020-01-14] MEDS ORDERED: Lidocaine 2% 5 ML SDV ONE (08:42)
--- NOTE | 2020-01-14 08:49 | PCM.SURGPN ---
- General Info Date of Service: 01/14/20 Functional Status: Reports: Other (Continued RUQ/epigastric pain despite pain medications. No fever. VSS. No acute events overnight. ) - Review of Systems General: Reports: Fatigue HEENT: Reports: No Symptoms Pulmonary: Reports: No Symptoms Cardiovascular: Reports: No Symptoms Gastrointestinal: Reports: Abdominal Pain, Decreased Appetite Genitourinary: Reports: No Symptoms Musculoskeletal: Reports: Back Pain (lower) Skin: Reports: No Symptoms Neurological: Reports: No Symptoms - Patient Data Vitals - Most Recent: Last Vital Signs Temp 37.5 C 01/14/20 04:00 Pulse 62 01/14/20 04:00 Resp 12 01/14/20 04:00 BP 125/71 01/14/20 04:00 Pulse Ox 90 L 01/14/20 04:00 Weight - Most Recent: 89.1 kg I&O - Last 24 Hours: Intake & Output 01/13/20 01/14/20 01/14/20 22:59 06:59 14:59 Intake Total 1003 Output Total 350 Balance 653 Lab Results Last 24 Hrs: Laboratory Results - last 24 hr 01/13/20 01/13/20 01/13/20 Range/Units 15:10 15:10 15:17 WBC 15.13 H (4.0-11.0) K/uL RBC 4.64 (4.30-5.90) M/uL Hgb 15.6 (12.0-16.0) g/dL Hct 46.5 H (36.0-46.0) % MCV 100.2 H (80.0-98.0) fL MCH 33.6 H (27.0-32.0) pg MCHC 33.5 (31.0-37.0) g/dL RDW Std Deviation 54.7 (28.0-62.0) fl RDW Coeff of Marielena 15 (11.0-15.0) % Plt Count 242 (150-400) K/uL MPV 10.00 (7.40-12.00) fL Neut % (Auto) 78.6 (48.0-80.0) % Lymph % (Auto) 14.0 L (16.0-40.0) % [place] % (Auto) 6.6 (0.0-15.0) % Eos % (Auto) 0.5 (0.0-7.0) % Baso % (Auto) 0.3 (0.0-1.5) % Neut # (Auto) 11.9 H (1.4-5.7) K/uL Lymph # (Auto) 2.1 (0.6-2.4) K/uL [place] # (Auto) 1.0 H (0.0-0.8) K/uL Eos # (Auto) 0.1 (0.0-0.7) K/uL Baso # (Auto) 0.0 (0.0-0.1) K/uL Nucleated RBC % 0.0 /100WBC Nucleated RBCs # 0 K/uL Sodium (136-145) mmol/L Potassium (3.5-5.1) mmol/L Chloride (98-107) mmol/L Carbon Dioxide (21.0-32.0) mmol/L BUN (7.0-18.0) mg/dL Creatinine (0.6-1.0) mg/dL Est Cr Clr Drug Dosing mL/min Estimated GFR (MDRD) ml/min Glucose (74-106) mg/dL Calcium (8.5-10.1) mg/dL Total Bilirubin (0.2-1.0) mg/dL AST (15-37) IU/L ALT (14-63) IU/L Alkaline Phosphatase (46-116) U/L Total Protein (6.4-8.2) g/dL Albumin (3.4-5.0) g/dL Globulin (2.6-4.0) g/dL Albumin/Globulin Ratio (0.9-1.6) Lipase (73-393) U/L Urine Color YELLOW Urine Appearance SLT CLOUDY Urine pH 5.5 (5.0-8.0) Ur Specific Mears >= 1.030 (1.001-1.035) Urine Protein NEGATIVE (NEGATIVE) mg/dL Urine Glucose (UA) NEGATIVE (NEGATIVE) mg/dL Urine Ketones 15 H (NEGATIVE) mg/dL Urine Occult Blood TRACE-INTACT H (NEGATIVE) Urine Nitrite NEGATIVE (NEGATIVE) Urine Bilirubin NEGATIVE (NEGATIVE) Urine Urobilinogen 0.2 (<2.0) EU/dL Ur Leukocyte Esterase NEGATIVE (NEGATIVE) Urine RBC 1-4 (0-2/HPF) Urine WBC 0-3 (0-5/HPF) Ur Epithelial Cells FEW (NONE-FEW) Urine Bacteria 2+ H (NEGATIVE) Urinalysis Comment Urine HCG, Qual NEGATIVE (NEGATIVE) 01/13/20 01/14/20 01/14/20 Range/Units 15:17 05:40 05:40 WBC 8.88 (4.0-11.0) K/uL RBC 3.97 L (4.30-5.90) M/uL Hgb 12.8 (12.0-16.0) g/dL Hct 40.2 (36.0-46.0) % MCV 101.3 H (80.0-98.0) fL MCH 32.2 H (27.0-32.0) pg MCHC 31.8 (31.0-37.0) g/dL RDW Std Deviation 55.5 (28.0-62.0) fl RDW Coeff of Marielena 15 (11.0-15.0) % Plt Count 213 (150-400) K/uL MPV 10.00 (7.40-12.00) fL Neut % (Auto) (48.0-80.0) % Lymph % (Auto) (16.0-40.0) % [place] % (Auto) (0.0-15.0) % Eos % (Auto) (0.0-7.0) % Baso % (Auto) (0.0-1.5) % Neut # (Auto) (1.4-5.7) K/uL Lymph # (Auto) (0.6-2.4) K/uL [place] # (Auto) (0.0-0.8) K/uL Eos # (Auto) (0.0-0.7) K/uL Baso # (Auto) (0.0-0.1) K/uL Nucleated RBC % 0.0 /100WBC Nucleated RBCs # 0 K/uL Sodium 138 139 (136-145) mmol/L Potassium 3.9 4.2 (3.5-5.1) mmol/L Chloride 101 104 (98-107) mmol/L Carbon Dioxide 25.4 28.1 (21.0-32.0) mmol/L BUN 8 7 (7.0-18.0) mg/dL Creatinine 0.8 0.9 (0.6-1.0) mg/dL Est Cr Clr Drug Dosing 90.84 80.75 mL/min Estimated GFR (MDRD) > 60.0 > 60.0 ml/min Glucose 102 99 (74-106) mg/dL Calcium 8.9 8.1 L (8.5-10.1) mg/dL Total Bilirubin 0.8 1.1 H (0.2-1.0) mg/dL AST 69 H 45 H (15-37) IU/L ALT 60 47 (14-63) IU/L Alkaline Phosphatase 144 H 104 (46-116) U/L Total Protein 7.3 5.7 L (6.4-8.2) g/dL Albumin 4.0 2.9 L (3.4-5.0) g/dL Globulin 3.3 2.8 (2.6-4.0) g/dL Albumin/Globulin Ratio 1.2 1.0 (0.9-1.6) Lipase 123 (73-393) U/L Urine Color Urine Appearance Urine pH (5.0-8.0) Ur Specific Mears (1.001-1.035) Urine Protein (NEGATIVE) mg/dL Urine Glucose (UA) (NEGATIVE) mg/dL Urine Ketones (NEGATIVE) mg/dL Urine Occult Blood (NEGATIVE) Urine Nitrite (NEGATIVE) Urine Bilirubin (NEGATIVE) Urine Urobilinogen (<2.0) EU/dL Ur Leukocyte Esterase (NEGATIVE) Urine RBC (0-2/HPF) Urine WBC (0-5/HPF) Ur Epithelial Cells (NONE-FEW) Urine Bacteria (NEGATIVE) Urinalysis Comment Urine HCG, Qual (NEGATIVE) Med Orders - Current: Current Medications Hydrocodone Bitart/Acetaminophen ([place] 325-5 Mg) 2 tab PO Q4H PRN PRN Reason: Pain (moderate 4-6) Diphenhydramine HCl (Benadryl) 25 mg IVPUSH Q4H PRN PRN Reason: Itching Hydromorphone HCl (Dilaudid) 0.5 mg IVPUSH Q1H PRN PRN Reason: Pain (severe 7-10) Last Admin: 01/14/20 07:36 Dose: 0.5 mg Lactated Ringer's (Ringers, Lactated) 1,000 mls @ 125 mls/hr IV ASDIRECTED PHILIP Last Admin: 01/14/20 07:20 Dose: 125 mls/hr Piperacillin Sod/Tazobactam (Sod 3.375 gm/ Sodium Chloride) 50 mls @ 100 mls/ hr IV Q6H [facility] Last Admin: 01/14/20 06:06 Dose: 100 mls/hr Morphine Sulfate (Morphine) 4 mg IVPUSH Q2H PRN PRN Reason: Pain (moderate 4-6) Last Admin: 01/13/20 18:02 Dose: 4 mg Ondansetron HCl (Zofran) 4 mg IVPUSH Q6H PRN PRN Reason: Nausea/Vomiting Scopolamine (Transderm-Scop) 1.5 mg TRDERM Q72H [facility] Last Admin: 01/13/20 20:41 Dose: 1.5 mg Sodium Chloride (Saline Flush) 2.5 ml FLUSH ASDIRECTED PRN PRN Reason: Keep Vein Open Last Admin: 01/13/20 18:02 Dose: 2.5 ml Sodium Chloride (Saline Flush) 10 ml FLUSH ASDIRECTED PRN PRN Reason: Keep Vein Open Last Admin: 01/13/20 18:02 Dose: 10 ml Sodium Chloride (Saline Flush) 2.5 ml FLUSH ASDIRECTED PRN PRN Reason: Keep Vein Open Last Admin: 01/13/20 18:02 Dose: 2.5 ml Discontinued Medications Bupivacaine HCl (Marcaine 0.5%) Confirm Administered Dose 30 ml .ROUTE .STK-MED ONE Stop: 01/14/20 08:30 Famotidine (Pepcid) 20 mg IVPUSH ONETIME ONE Stop: 01/13/20 15:05 Last Admin: 01/13/20 15:17 Dose: 20 mg Fentanyl (Sublimaze) Confirm Administered Dose 250 mcg .ROUTE .STK-MED ONE Stop: 01/14/20 08:39 Sodium Chloride (Normal Saline) 1,000 mls @ 999 mls/hr IV BOLUS ONE Stop: 01/13/20 16:03 Last Admin: 01/13/20 15:17 Dose: 999 mls/hr Sodium Chloride (Normal Saline) 1,000 mls @ 125 mls/hr IV ASDIRECTED [facility] Last Admin: 01/13/20 18:03 Dose: 125 mls/hr Iopamidol (Isovue-370 (76%)) 100 ml IVPUSH ONETIME ONE Stop: 01/13/20 18:17 Last Admin: 01/13/20 18:16 Dose: 100 ml Lidocaine (Xylocaine-Mpf 2%) Confirm Administered Dose 5 ml .ROUTE .STK-MED ONE Stop: 01/14/20 08:43 Midazolam HCl (Versed 1 Mg/Ml) Confirm Administered Dose 2 mg .ROUTE .STK-MED ONE Stop: 01/14/20 08:39 Morphine Sulfate (Morphine) 4 mg IVPUSH ONETIME ONE Stop: 01/13/20 15:05 Last Admin: 01/13/20 15:17 Dose: 4 mg Ondansetron HCl (Zofran) 4 mg IVPUSH ONETIME ONE Stop: 01/13/20 15:04 Last Admin: 01/13/20 15:17 Dose: 4 mg Propofol (Diprivan 20 Ml) Confirm Administered Dose 200 mg .ROUTE .STK-MED ONE Stop: 01/14/20 08:39 Rocuronium Otis (Zemuron) Confirm Administered Dose 100 mg .ROUTE .STK-MED ONE Stop: 01/14/20 08:43 - Exam General: Alert, Oriented, Mild Distress Lungs: Normal Respiratory Effort Cardiovascular: Regular Rate GI/Abdominal Exam: Soft, Tender (epigastric area ) Skin: Warm, Dry, Intact Sepsis Event Note - Evaluation Sepsis Screening Result: No Definite Risk - Focused Exam Vital Signs: Vital Signs Temp Pulse Resp BP Pulse Ox Pulse Ox 01/14/20 04:00 37.5 C 62 12 125/71 90 L 01/14/20 01:00 36.3 C 86 17 118/98 H 95 01/13/20 23:00 96 01/13/20 22:21 101 H 128/84 Date Exam was Performed: 01/14/20 Time Exam was Performed: 08:46 - Problem List & Annotations (1) Acute cholecystitis SNOMED Code(s): 15854027 Code(s): K81.0 - ACUTE CHOLECYSTITIS Status: Acute Current Visit: Yes - Problem List Review Problem List Initiated/Reviewed/Updated: Yes - My Orders Last 24 Hours: Active Orders 24 hr Category Date Time Status Patient Status [ADT] Routine ADT 01/13/20 18:31 Active May Shower [RC] ASDIRECTED Care 01/13/20 18:31 Active Oxygen Therapy [RC] PRN Care 01/13/20 18:31 Active RT Incentive Spirometry [RC] Q1HWA Care 01/13/20 18:31 Active Up ad Rochelle [RC] ASDIRECTED Care 01/13/20 18:31 Active Vital Signs [RC] PER UNIT ROUTINE Care 01/13/20 18:31 Active Clear Liquid Diet [DIET] Diet 01/13/20 Dinner Active NPO After Midnight [Nothing per Oral After Midnight Diet 01/14/20 Breakfast Active Diet] [DIET] Acetaminophen/HYDROcodone [[place] 325-5 MG] Med 01/13/20 18:31 Active 2 tab PO Q4H PRN HYDROmorphone [Dilaudid] Med 01/13/20 18:31 Active 0.5 mg IVPUSH Q1H PRN Lactated Ringers [Ringers, Lactated] 1,000 ml Med 01/13/20 18:45 Active IV ASDIRECTED Morphine Med 01/13/20 17:47 Active 4 mg IVPUSH Q2H PRN Ondansetron [Zofran] Med 01/13/20 18:31 Active 4 mg IVPUSH Q6H PRN Piperacillin/Tazobactam [Piperacil-Tazobact] 3.375 gm Med 01/13/20 18:45 Active Sodium Chloride 0.9% [Normal Saline] 50 ml IV Q6H Scopolamine [Transderm-Scop] Med 01/13/20 18:45 Active 1.5 mg TRDERM Q72H Sodium Chloride 0.9% [Saline Flush] Med 01/13/20 15:03 Active 10 ml FLUSH ASDIRECTED PRN Sodium Chloride 0.9% [Saline Flush] Med 01/13/20 15:03 Active 2.5 ml FLUSH ASDIRECTED PRN Sodium Chloride 0.9% [Saline Flush] Med 01/13/20 15:03 Active 2.5 ml FLUSH ASDIRECTED PRN diphenhydrAMINE [Benadryl] Med 01/13/20 18:31 Active 25 mg IVPUSH Q4H PRN Saline Lock Insert [OM.PC] Stat Oth 01/13/20 15:03 Ordered Resuscitation Status Routine Resus Stat 01/13/20 18:31 Ordered Medication Orders Hydrocodone Bitart/Acetaminophen ([place] 325-5 Mg) 2 tab PO Q4H PRN PRN Reason: Pain (moderate 4-6) Diphenhydramine HCl (Benadryl) 25 mg IVPUSH Q4H PRN PRN Reason: Itching Hydromorphone HCl (Dilaudid) 0.5 mg IVPUSH Q1H PRN PRN Reason: Pain (severe 7-10) Last Admin: 01/14/20 07:36 Dose: 0.5 mg Admin: 01/14/20 01:06 Dose: 0.5 mg Admin: 01/13/20 21:23 Dose: 0.5 mg Admin: 01/13/20 18:44 Dose: 0.5 mg Lactated Ringer's (Ringers, Lactated) 1,000 mls @ 125 mls/hr IV ASDIRECTED [facility] Last Admin: 01/14/20 07:20 Dose: 125 mls/hr Infusion: 01/14/20 04:43 Dose: 125 mls/hr Admin: 01/13/20 20:43 Dose: 125 mls/hr Piperacillin Sod/Tazobactam (Sod 3.375 gm/ Sodium Chloride) 50 mls @ 100 mls/ hr IV Q6H [facility] Last Admin: 01/14/20 06:06 Dose: 100 mls/hr Infusion: 01/14/20 01:34 Dose: 100 mls/hr Admin: 01/14/20 01:04 Dose: 100 mls/hr Infusion: 01/13/20 19:15 Dose: 100 mls/hr Admin: 01/13/20 18:45 Dose: 100 mls/hr Morphine Sulfate (Morphine) 4 mg IVPUSH Q2H PRN PRN Reason: Pain (moderate 4-6) Last Admin: 01/13/20 18:02 Dose: 4 mg Ondansetron HCl (Zofran) 4 mg IVPUSH Q6H PRN PRN Reason: Nausea/Vomiting Scopolamine (Transderm-Scop) 1.5 mg TRDERM Q72H [facility] Last Admin: 01/13/20 20:41 Dose: 1.5 mg Sodium Chloride (Saline Flush) 2.5 ml FLUSH ASDIRECTED PRN PRN Reason: Keep Vein Open Last Admin: 01/13/20 18:02 Dose: 2.5 ml Sodium Chloride (Saline Flush) 10 ml FLUSH ASDIRECTED PRN PRN Reason: Keep Vein Open Last Admin: 01/13/20 18:02 Dose: 10 ml Sodium Chloride (Saline Flush) 2.5 ml FLUSH ASDIRECTED PRN PRN Reason: Keep Vein Open Last Admin: 01/13/20 18:02 Dose: 2.5 ml - Plan Plan (Free Text/Narrative):: WBC now normal this am. Alk phos WNL. AST improved. Bili mildly elevated at 1.1 (likely due to inflammatory process). To the OR this am for laparoscopic possible open cholecystectomy.
[2020-01-14] MEDS ORDERED: Dexamethasone 4 MG/ML 5 ML MDV ONE (09:17)
[2020-01-14] MEDS ORDERED: Ondansetron 4 MG/2 ML SDV ONE (09:17)
[2020-01-14] MEDS ORDERED: HYDROmorphone 2 MG/ML Syringe ONE (10:11)
[2020-01-14] MEDS ORDERED: Glycopyrrolate 0.2 MG/ML SDV ONE (11:15)
[2020-01-14] MEDS ORDERED: ePHEDrine 50 MG/ML SDV ONE (11:19)
--- NOTE | 2020-01-14 11:43 | PCM.OPNOTE ---
- General Post-Op/Procedure Note Date of Surgery/Procedure: 01/14/20 Operative Procedure(s): Laparoscopic converted to open cholecystectomy Findings: Severely inflamed gallbladder and enlarged liver with fatty infiltration Pre Op Diagnosis: Acute cholecystitis Post-Op Diagnosis: same Anesthesia Technique: General ET Tube Primary Surgeon: Zeenat Buckner Fluid Replacement, Intraop: 1,800 Output, Urine Amount: 40 EBL in mLs: 400 Condition: Stable Free Text/Narrative:: Intake & Output 01/13/20 01/14/20 01/14/20 22:59 06:59 14:59 Intake Total 1003 Output Total 350 Balance 653
[2020-01-14] MEDS ORDERED: Nicotine 14 MG/24 Hr Patch TRDERM SCH (11:45)
[2020-01-14] MEDS ORDERED: Acetaminophen 1,000 MG in Premix Bag 1 BAG IV ONE (11:58)
[2020-01-14 12:28] LABS: BLOOD UREA NITROGEN,BUN 7 mg/dL (7.0-18.0); CARBON DIOXIDE,CO2 21.9 mmol/L (21.0-32.0); CHLORIDE,CL 103 mmol/L (98-107); GLUCOSE RANDOM 123 mg/dL (74-106); POTASSIUM,K 4.6 mmol/L (3.5-5.1); SODIUM,NA 135 mmol/L (136-145)
[2020-01-14] MEDS: Cyclobenzaprine 5 MG Tab PO SCH ×2 (13:42→21:41)
[2020-01-14] MEDS: Nicotine 14 MG/24 Hr Patch TRDERM SCH (13:43)
--- NOTE | 2020-01-14 14:21 | OR ---
SURGEON: ZEENAT SIMON MD DATE OF PROCEDURE: 01/14/2020 PREOPERATIVE DIAGNOSIS: Acute cholecystitis. POSTOPERATIVE DIAGNOSIS: Acute cholecystitis. PROCEDURE PERFORMED: Laparoscopic converted to open cholecystectomy. PRIMARY SURGEON: Zeenat Simon MD. SECONDARY SURGEON: Syed Fong MD. ANESTHESIA: General endotracheal anesthesia. FLUIDS: 1800 mL of crystalloid. ESTIMATED BLOOD LOSS: 400 mL. URINE OUTPUT: 40 mL. FINDINGS: Severely inflamed gallbladder with an enlarged and fatty liver. COMPLICATIONS: None. INDICATIONS: The patient is a 34-year-old female who has had months of right upper quadrant pain, but the pain had become severe and constant, so she presented to the emergency room. Workup in the ER revealed acute cholecystitis. She was admitted overnight for bowel rest, IV fluids, and IV antibiotics. This morning, her white blood cell count is now within normal range, but the patient is still complaining of severe epigastric and right upper quadrant pain. The decision was made to proceed with a laparoscopic possible open cholecystectomy. I explained that I would be attempting this laparoscopically, but should I be unable to perform it safely, we would convert it to open. I explained the expected perioperative course for each of the procedures. I explained the risks including bleeding, infection, or damage to surrounding structures. She verbalized understanding and wishes to proceed. PROCEDURE IN DETAIL: The patient was brought to the OR and placed on the OR table in supine position. A time-out was completed verifying the patient's name, age, date of , allergies, and procedure to be performed. General endotracheal anesthesia was induced. The left arm was tucked to the patient's side and a Roman catheter placed. The abdomen was prepped and draped in usual standard fashion. I anesthetized the infraumbilical fold with 0.5% Marcaine plain. An 11 blade was used to make an incision along the infraumbilical fold. Cautery was used to dissect down to the level of subcutaneous fat. I bluntly dissected down to the fascia. The fascia was elevated with Johanna's and incised sharply with a pair of Kerr scissors. The peritoneum was identified. This was elevated with hemostats and incised sharply with the Metzenbaum scissors. Entry of the abdomen was palpated digitally. A 12-mm Lane trocar was placed in the abdomen. The abdomen was insufflated and a 5 mm 30-degree scope was inserted. I inspected the area underneath my initial trocar placement. No damage to surrounding structures was noted. The patient was then placed into reverse Trendelenburg position. 5 mm trocars were placed under direct visualization in the following locations, 1 in the epigastric area, 1 in the right flank, and 1 two fingerbreadths below the right subcostal margin in the midclavicular line. The patient was noted to have an enlarged and very fatty liver. I attempted to grasp the dome of the gallbladder, but was unable to do so because the gallbladder was edematous, inflamed, and very distended. I inserted a laparoscopic needle into the dome of the gallbladder and aspirated approximately 30 mL of purulent green material. This then allowed me to grasp the gallbladder and elevate it. Her liver was enlarged, which limited in my ability to lift or expose the infundibulum. There were some omental adhesions along the body of the gallbladder. These were taken down using hook cautery and gentle blunt dissection. I did identify my infundibulum, but the area was grossly edematous and severely inflamed. I attempted to dissect around this area, but given my narrow window of visualization and the severe amount of inflammation, I was unable to adequately dissect and see my anatomic structures. I made two other attempts at decompressing the gallbladder and removed ~ 50 more ml of fluid, but the gallbladder was still distended. A photograph of this area was taken. The decision was made to convert to open. I removed my 5 mm trocars as well as a [address] trocar. I closed the fascia at the infraumbilical port site with interrupted 0 Vicryl sutures. I closed the subcutaneous fat layer with an interrupted 3-0 Vicryl stitch and closed the skin with a running 4-0 Monocryl suture. I then made a right upper quadrant oblique incision 2 fingerbreadths below the right subcostal margin using a 15 blade. Cautery was used to dissect through the layers of the abdominal wall down to the posterior rectus sheath. The posterior rectus sheath was elevated with hemostats and incised sharply with the Metzenbaum scissors. Once I had entered the abdomen, I extended my incision laterally and medially. Dr. Syed Fong was asked to scrub into the case to assist. We placed moistened laps within the abdomen and retractors and exposed the gallbladder. The gallbladder was grasped with Samanta clamps and elevated. We began our dissection along the proximal half of the gallbladder. Using blunt dissection and a right-angle device, we were able to dissect free the cystic triangle. The node of [place]ot was identified. Once the cystic duct and artery were identified, a 2-0 Vicryl suture was placed on the proximal aspect of the cystic duct and tied. We then doubly clipped it and ligated it as well. The artery was doubly clipped and ligated. We then began dissection in a dome down manner. The plane between the gallbladder and the liver fossa was severely inflamed making dissection difficult. Using sharp dissection and electrocautery, we were eventually able to create a plane and carry this down to the proximal half of the gallbladder. With more mobility, we were then able to dissect free more of the proximal cystic plate. The gallbladder was removed from its attachments and sent to pathology. Pressure was then held in the gallbladder fossa for 2 minutes. We reinspected the field and cauterized several bleeding points. Surgicel and Avitene were then placed in the gallbladder fossa and pressure held for 2 minutes. We reinspected our operative field and it appeared to be hemostatic. The abdomen was irrigated with a normal saline Ancef solution. This was suctioned out. A 19-Urdu Binu drain was then brought out through the right lateral port site and placed within the gallbladder fossa. It was secured to the skin using a 2-0 silk suture. We then closed the peritoneum and posterior sheath with a running 0 Vicryl suture. The anterior abdominal wall fascia and oblique muscles were closed with interrupted 0 Ethibond sutures. An On-Q pump was placed over the fascia and the subcutaneous fat was closed with a running 0 Vicryl suture. [place] were then used to close the skin. Sterile dressings were applied. All counts were complete and correct at the end of the case. The patient was transferred to the PACU in stable condition. MARY ROACH /[id number] NARCISO
[2020-01-14] MEDS: Acetaminophen/oxyCODONE 325-5 MG Tab PO PRN ×2 (15:40→20:19)
[2020-01-14] MEDS: Morphine 4 MG/ML Syringe IVPUSH PRN ×2 (18:14→22:51)
[2020-01-15] MEDS: Piperacillin/Tazobactam 3.375 GM in Sodium Chloride 0.9% 50 ML IV SCH ×4 (00:28→18:05)
[2020-01-15] MEDS: Lactated Ringers 1,000 ML IV SCH (03:26)
[2020-01-15] MEDS ORDERED: HYDROmorphone 1 MG/ML Syringe IVPUSH PRN (06:18)
[2020-01-15] MEDS: Ketorolac 30 MG/ML SDV IVPUSH SCH ×3 (06:22→17:53)
[2020-01-15] MEDS: Cyclobenzaprine 5 MG Tab PO SCH ×3 (06:22→21:10)
--- NOTE | 2020-01-15 06:26 | PCM.SURGPN ---
- General Info Date of Service: 01/15/20 Date of Surgery/Procedure: 01/14/20 POD#: 1 - Review of Systems General: Reports: No Symptoms Pulmonary: Reports: No Symptoms Cardiovascular: Reports: No Symptoms Gastrointestinal: Reports: Abdominal Pain (alng incision and especially with coughing or deep breathing. ) Genitourinary: Reports: No Symptoms Musculoskeletal: Reports: No Symptoms Skin: Reports: No Symptoms Neurological: Reports: No Symptoms - Patient Data Vitals - Most Recent: Last Vital Signs Temp 36.6 C 01/15/20 03:30 Pulse 87 01/15/20 03:30 Resp 18 01/15/20 03:30 BP 114/54 L 01/15/20 03:30 Pulse Ox 96 01/15/20 03:30 Weight - Most Recent: 89.1 kg I&O - Last 24 Hours: Intake & Output 01/14/20 01/14/20 01/15/20 14:59 22:59 06:59 Intake Total 3950 972 2182 Output Total 393 062 8504 Balance 3780 517 -168 Lab Results Last 24 Hrs: Laboratory Results - last 24 hr 01/14/20 01/14/20 01/14/20 Range/Units 05:40 12:02 12:02 WBC 12.51 H (4.0-11.0) K/uL RBC 3.96 L (4.30-5.90) M/uL Hgb 13.0 (12.0-16.0) g/dL Hct 40.4 (36.0-46.0) % MCV 102.0 H (80.0-98.0) fL MCH 32.8 H (27.0-32.0) pg MCHC 32.2 (31.0-37.0) g/dL RDW Std Deviation 56.1 (28.0-62.0) fl RDW Coeff of Marielena 15 (11.0-15.0) % Plt Count 201 (150-400) K/uL MPV 9.80 (7.40-12.00) fL Nucleated RBC % 0.0 /100WBC Nucleated RBCs # 0 K/uL Sodium 139 135 L (136-145) mmol/L Potassium 4.2 4.6 (3.5-5.1) mmol/L Chloride 104 103 (98-107) mmol/L Carbon Dioxide 28.1 21.9 (21.0-32.0) mmol/L BUN 7 7 (7.0-18.0) mg/dL Creatinine 0.9 0.8 (0.6-1.0) mg/dL Est Cr Clr Drug Dosing 80.75 90.84 mL/min Estimated GFR (MDRD) > 60.0 > 60.0 ml/min Glucose 99 123 H (74-106) mg/dL Calcium 8.1 L 7.8 L (8.5-10.1) mg/dL Total Bilirubin 1.1 H 0.9 (0.2-1.0) mg/dL AST 45 H 132 H (15-37) IU/L ALT 47 79 H (14-63) IU/L Alkaline Phosphatase 104 103 (46-116) U/L Total Protein 5.7 L 5.8 L (6.4-8.2) g/dL Albumin 2.9 L 2.8 L (3.4-5.0) g/dL Globulin 2.8 3.0 (2.6-4.0) g/dL Albumin/Globulin Ratio 1.0 0.9 (0.9-1.6) Med Orders - Current: Current Medications Cyclobenzaprine HCl (Flexeril) 5 mg PO TID [facility] Last Admin: 01/15/20 06:22 Dose: 5 mg Diphenhydramine HCl (Benadryl) 25 mg IVPUSH Q4H PRN PRN Reason: Itching Hydromorphone HCl (Dilaudid) 0.5 mg IVPUSH Q2H PRN PRN Reason: Pain (severe 7-10) Lactated Ringer's (Ringers, Lactated) 1,000 mls @ 150 mls/hr IV ASDIRECTED [facility] Last Infusion: 01/15/20 03:27 Dose: 150 mls/hr Piperacillin Sod/Tazobactam (Sod 3.375 gm/ Sodium Chloride) 50 mls @ 100 mls/ hr IV Q6H [facility] Last Admin: 01/15/20 06:22 Dose: 100 mls/hr Ketorolac Tromethamine (Toradol) 30 mg IVPUSH Q6H [facility] Stop: 01/20/20 05:57 Last Admin: 01/15/20 06:22 Dose: 30 mg Nicotine (Habitrol) 14 mg TRDERM DAILY [facility] Last Admin: 01/14/20 13:43 Dose: 14 mg Ondansetron HCl (Zofran) 4 mg IVPUSH Q6H PRN PRN Reason: Nausea/Vomiting Oxycodone/Acetaminophen (Percocet 325-5 Mg) 2 tab PO Q4H PRN PRN Reason: Pain (moderate 4-6) Last Admin: 01/14/20 20:19 Dose: 2 tab Scopolamine (Transderm-Scop) 1.5 mg TRDERM Q72H [facility] Last Admin: 01/13/20 20:41 Dose: 1.5 mg Sodium Chloride (Saline Flush) 2.5 ml FLUSH ASDIRECTED PRN PRN Reason: Keep Vein Open Last Admin: 01/13/20 18:02 Dose: 2.5 ml Sodium Chloride (Saline Flush) 10 ml FLUSH ASDIRECTED PRN PRN Reason: Keep Vein Open Last Admin: 01/13/20 18:02 Dose: 10 ml Sodium Chloride (Saline Flush) 2.5 ml FLUSH ASDIRECTED PRN PRN Reason: Keep Vein Open Last Admin: 01/13/20 18:02 Dose: 2.5 ml Discontinued Medications Hydrocodone Bitart/Acetaminophen ([place] 325-5 Mg) 2 tab PO Q4H PRN PRN Reason: Pain (moderate 4-6) Bupivacaine HCl (Marcaine 0.5%) Confirm Administered Dose 30 ml .ROUTE .STK-MED ONE Stop: 01/14/20 08:30 Bupivacaine HCl (Marcaine 0.5%) Confirm Administered Dose 120 ml .ROUTE .STK- MED ONE Stop: 01/14/20 10:09 Cefazolin Sodium (Ancef) 1 gm IV .STK-MED ONE Stop: 01/13/20 18:33 Dexamethasone (Dexamethasone) Confirm Administered Dose 20 mg .ROUTE .STK-MED ONE Stop: 01/14/20 09:18 Ephedrine Sulfate (Ephedrine Sulfate) Confirm Administered Dose 50 mg .ROUTE .STK-MED ONE Stop: 01/14/20 11:20 Famotidine (Pepcid) 20 mg IVPUSH ONETIME ONE Stop: 01/13/20 15:05 Last Admin: 01/13/20 15:17 Dose: 20 mg Fentanyl (Sublimaze) Confirm Administered Dose 250 mcg .ROUTE .STK-MED ONE Stop: 01/14/20 08:39 Glycopyrrolate (Robinul) Confirm Administered Dose 0.2 mg .ROUTE .STK-MED ONE Stop: 01/14/20 11:16 Hydromorphone HCl (Dilaudid) 0.5 mg IVPUSH Q1H PRN PRN Reason: Pain (severe 7-10) Last Admin: 01/14/20 07:36 Dose: 0.5 mg Hydromorphone HCl (Dilaudid) Confirm Administered Dose 2 mg .ROUTE .STK-MED ONE Stop: 01/14/20 10:12 Sodium Chloride (Normal Saline) 1,000 mls @ 999 mls/hr IV BOLUS ONE Stop: 01/13/20 16:03 Last Admin: 01/13/20 15:17 Dose: 999 mls/hr Sodium Chloride (Normal Saline) 1,000 mls @ 125 mls/hr IV ASDIRECTED [facility] Last Admin: 01/13/20 18:03 Dose: 125 mls/hr Acetaminophen 1,000 mg/ Premix 100 mls @ 400 mls/hr IV NOW ONE Stop: 01/14/20 12:12 Last Admin: 01/14/20 13:50 Dose: Not Given Iopamidol (Isovue-370 (76%)) 100 ml IVPUSH ONETIME ONE Stop: 01/13/20 18:17 Last Admin: 01/13/20 18:16 Dose: 100 ml Lidocaine (Xylocaine-Mpf 2%) Confirm Administered Dose 5 ml .ROUTE .STK-MED ONE Stop: 01/14/20 08:43 Midazolam HCl (Versed 1 Mg/Ml) Confirm Administered Dose 2 mg .ROUTE .STK-MED ONE Stop: 01/14/20 08:39 Morphine Sulfate (Morphine) 4 mg IVPUSH ONETIME ONE Stop: 01/13/20 15:05 Last Admin: 01/13/20 15:17 Dose: 4 mg Morphine Sulfate (Morphine) 4 mg IVPUSH Q2H PRN PRN Reason: Pain (moderate 4-6) Last Admin: 01/14/20 22:51 Dose: 4 mg Nicotine (Habitrol) 14 mg TRDERM DAILY [facility] Last Admin: 01/14/20 13:59 Dose: Not Given Ondansetron HCl (Zofran) 4 mg IVPUSH ONETIME ONE Stop: 01/13/20 15:04 Last Admin: 01/13/20 15:17 Dose: 4 mg Ondansetron HCl (Zofran) Confirm Administered Dose 4 mg .ROUTE .STK-MED ONE Stop: 01/14/20 09:18 Propofol (Diprivan 20 Ml) Confirm Administered Dose 200 mg .ROUTE .STK-MED ONE Stop: 01/14/20 08:39 Rocuronium [place] (Zemuron) Confirm Administered Dose 100 mg .ROUTE .STK-MED ONE Stop: 01/14/20 08:43 - Exam Wound/Incisions: Healing Well, Drainage (on the lateral incision ) General: Alert, Oriented, Cooperative HEENT: Pupils Equal, Pupils Reactive Neck: Supple Lungs: Clear to Auscultation, Normal Respiratory Effort Cardiovascular: Regular Rate, Regular Rhythm GI/Abdominal Exam: Soft, Non-Tender, No Distention. No: Guarding, Rigid, Rebound, Tender Skin: Warm, Dry, Intact Neurological: No New Focal Deficit Psy/Mental Status: Alert, Agitated Sepsis Event Note - Evaluation Sepsis Screening Result: No Definite Risk - Focused Exam Vital Signs: Vital Signs Temp Pulse Resp BP Pulse Ox 01/15/20 03:30 36.6 C 87 18 114/54 L 96 01/14/20 23:00 36.4 C 87 17 119/74 94 L 01/14/20 19:00 36.6 C 89 17 106/67 92 L Date Exam was Performed: 01/15/20 Time Exam was Performed: 07:11 - Problem List & Annotations (1) Acute cholecystitis SNOMED Code(s): 17817139 Code(s): K81.0 - ACUTE CHOLECYSTITIS Status: Acute Current Visit: Yes - Problem List Review Problem List Initiated/Reviewed/Updated: Yes - My Orders Last 24 Hours: Active Orders 24 hr Category Date Time Status Patient Status [ADT] Routine ADT 01/14/20 11:58 Active Remove Roman Catheter [Urinary Catheter Removal] [RC] Care 01/15/20 06:17 Ordered Per Unit Routine Regular Diet [DIET] Diet 01/15/20 Breakfast Ordered CBC W/O DIFF,HEMOGRAM [HEME] AM Lab 01/15/20 05:11 Ordered CBC W/O DIFF,HEMOGRAM [HEME] AM Lab 01/16/20 05:11 Ordered CBC W/O DIFF,HEMOGRAM [HEME] AM Lab 01/17/20 05:11 Ordered CMP [COMPREHENSIVE METABOLIC PN,CMP] [CHEM] AM Lab 01/15/20 05:11 Ordered CMP [COMPREHENSIVE METABOLIC PN,CMP] [CHEM] AM Lab 01/16/20 05:11 Ordered CMP [COMPREHENSIVE METABOLIC PN,CMP] [CHEM] AM Lab 01/17/20 05:11 Ordered CULTURE TISSUE [RM] Routine Lab 01/14/20 09:40 Received MAGNESIUM [CHEM] AM Lab 01/15/20 05:11 Ordered MAGNESIUM [CHEM] AM Lab 01/16/20 05:11 Ordered MAGNESIUM [CHEM] AM Lab 01/17/20 05:11 Ordered PHOSPHORUS [CHEM] AM Lab 01/15/20 05:11 Ordered PHOSPHORUS [CHEM] AM Lab 01/16/20 05:11 Ordered PHOSPHORUS [CHEM] AM Lab 01/17/20 05:11 Ordered Acetaminophen/oxyCODONE [Percocet 325-5 MG] Med 01/14/20 15:25 Active 2 tab PO Q4H PRN Cyclobenzaprine [Flexeril] Med 01/14/20 14:00 Active 5 mg PO TID HYDROmorphone [Dilaudid] Med 01/15/20 06:18 Ordered 0.5 mg IVPUSH Q2H PRN Ketorolac [Toradol] Med 01/15/20 06:00 Ordered 30 mg IVPUSH Q6H Nicotine [Habitrol] Med 01/14/20 13:45 Active 14 mg TRDERM DAILY Medication Orders Cyclobenzaprine HCl (Flexeril) 5 mg PO TID [facility] Last Admin: 01/15/20 06:22 Dose: 5 mg Admin: 01/14/20 21:41 Dose: 5 mg Admin: 01/14/20 13:42 Dose: 5 mg Diphenhydramine HCl (Benadryl) 25 mg IVPUSH Q4H PRN PRN Reason: Itching Hydromorphone HCl (Dilaudid) 0.5 mg IVPUSH Q2H PRN PRN Reason: Pain (severe 7-10) Lactated Ringer's (Ringers, Lactated) 1,000 mls @ 150 mls/hr IV ASDIRECTED [facility] Last Infusion: 01/15/20 03:27 Dose: 150 mls/hr Admin: 01/15/20 03:26 Dose: 125 mls/hr Infusion: 01/15/20 02:15 Dose: 125 mls/hr Admin: 01/14/20 18:15 Dose: 125 mls/hr Infusion: 01/14/20 15:20 Dose: 125 mls/hr Admin: 01/14/20 07:20 Dose: 125 mls/hr Infusion: 01/14/20 04:43 Dose: 125 mls/hr Admin: 01/13/20 20:43 Dose: 125 mls/hr Piperacillin Sod/Tazobactam (Sod 3.375 gm/ Sodium Chloride) 50 mls @ 100 mls/ hr IV Q6H [facility] Last Admin: 01/15/20 06:22 Dose: 100 mls/hr Infusion: 01/15/20 00:58 Dose: 100 mls/hr Admin: 01/15/20 00:28 Dose: 100 mls/hr Infusion: 01/14/20 18:44 Dose: 100 mls/hr Admin: 01/14/20 18:14 Dose: 100 mls/hr Admin: 01/14/20 13:26 Dose: Infusion: 01/14/20 06:36 Dose: 100 mls/hr Admin: 01/14/20 06:06 Dose: 100 mls/hr Infusion: 01/14/20 01:34 Dose: 100 mls/hr Admin: 01/14/20 01:04 Dose: 100 mls/hr Infusion: 01/13/20 19:15 Dose: 100 mls/hr Admin: 01/13/20 18:45 Dose: 100 mls/hr Ketorolac Tromethamine (Toradol) 30 mg IVPUSH Q6H [facility] Stop: 01/20/20 05:57 Last Admin: 01/15/20 06:22 Dose: 30 mg Nicotine (Habitrol) 14 mg TRDERM DAILY [facility] Last Admin: 01/14/20 13:43 Dose: 14 mg Ondansetron HCl (Zofran) 4 mg IVPUSH Q6H PRN PRN Reason: Nausea/Vomiting Oxycodone/Acetaminophen (Percocet 325-5 Mg) 2 tab PO Q4H PRN PRN Reason: Pain (moderate 4-6) Last Admin: 01/14/20 20:19 Dose: 2 tab Admin: 01/14/20 15:40 Dose: 2 tab Scopolamine (Transderm-Scop) 1.5 mg TRDERM Q72H [facility] Last Admin: 01/13/20 20:41 Dose: 1.5 mg Sodium Chloride (Saline Flush) 2.5 ml FLUSH ASDIRECTED PRN PRN Reason: Keep Vein Open Last Admin: 01/13/20 18:02 Dose: 2.5 ml Sodium Chloride (Saline Flush) 10 ml FLUSH ASDIRECTED PRN PRN Reason: Keep Vein Open Last Admin: 01/13/20 18:02 Dose: 10 ml Sodium Chloride (Saline Flush) 2.5 ml FLUSH ASDIRECTED PRN PRN Reason: Keep Vein Open Last Admin: 01/13/20 18:02 Dose: 2.5 ml - Plan Plan (Free Text/Narrative):: Patient woke this am and was agitated. There was a concern that the patient was having hallucinations, but I came to assess the patient and she was oriented to self and place. She was angry that people thought she was "crazy." I explained that with anesthesia, interrupted sleep, and narcotic pain medications that delirium can occur, but she does not appear to be delirious on my exam. Neuro: Percocet 325-5 mg 1-2 tab q 4hr prn pain. Scheduled Flexeril 5mg TID. Scheduled IV Toradol 30mg q 6hr. Abdominal binder as needed for comfort. IV Dilaudid 0.5 mg q 2hr for severe pain only. CV: VSS Pulmonary: Encourage IS use and OOB activity. Patient already ambulating well. Diet: Ok to advance to a regular diet. D/C IVF. Miralax for bowel regiment. Renal: UOP adequate. Roman catheter removed. BUN/Cr stable. Mag and Phos low. Will replace. Heme: Hemoglobin dropped slightly. Will continue to monitor. ID: WBC elevated at 14K likely stress response to surgery. However purulent material was aspirated from gallbladder so will continue IV zosyn for now. Will switch to oral antibiotics once WBC is WNL. Px: SCDs, no need for GI px.
[2020-01-15 06:53] LABS: BLOOD UREA NITROGEN,BUN 4 mg/dL (7.0-18.0); CARBON DIOXIDE,CO2 26.1 mmol/L (21.0-32.0); CHLORIDE,CL 99 mmol/L (98-107); GLUCOSE RANDOM 102 mg/dL (74-106); POTASSIUM,K 3.5 mmol/L (3.5-5.1); SODIUM,NA 137 mmol/L (136-145)
[2020-01-15] MEDS ORDERED: Magnesium Sulfate/Water 4 GM in Premix Bag 1 BAG IV ONE (07:09)
[2020-01-15] MEDS ORDERED: Phosphorus #1 250 MG Tab PO ONE (07:10)
[2020-01-15] MEDS: Polyethylene Glycol 3350 Powder 17 GM Packet PO SCH (08:04)
[2020-01-15] MEDS: Nicotine 14 MG/24 Hr Patch TRDERM SCH (08:04)
--- NOTE | 2020-01-15 11:28 | PCM.POSTAN ---
POST ANESTHESIA ASSESSMENT - MENTAL STATUS Mental Status: Alert, Oriented - VITAL SIGNS Vital Signs: Last Vital Signs Temp 37.6 C 01/15/20 07:08 Pulse 93 01/15/20 07:08 Resp 18 01/15/20 07:08 BP 125/76 01/15/20 07:08 Pulse Ox 97 01/15/20 07:08 - RESPIRATORY Respiratory Status: Respiratory Rate WNL, Airway Patent, O2 Saturation Stable - CARDIOVASCULAR CV Status: Pulse Rate WNL, Blood Pressure Stable - GASTROINTESTINAL GI Status: No Symptoms - PAIN Pain Score: 0 - POST OP HYDRATION Hydration Status: Adequate & Stable - OBSERVATIONS Free Text/Narrative:: No anesthesia complications noted.
--- NOTE | 2020-01-15 11:29 | PCM48HPAN ---
Post Anesthesia Note - EVALUATION WITHIN 48HRS OF ANESTHETIC Vital Signs in Normal Range: Yes Patient Participated in Evaluation: Yes Respiratory Function Stable: Yes Airway Patent: Yes Cardiovascular Function Stable: Yes Hydration Status Stable: Yes Pain Control Satisfactory: Yes Nausea and Vomiting Control Satisfactory: Yes Mental Status Recovered: Yes Vital Signs: Last Vital Signs Temp 37.6 C 01/15/20 07:08 Pulse 93 01/15/20 07:08 Resp 18 01/15/20 07:08 BP 125/76 01/15/20 07:08 Pulse Ox 97 01/15/20 07:08 - COMMENTS/OBSERVATIONS Free Text/Narrative:: Patient without anesthesia complications. No questions or concerns related to anesthesia.
[2020-01-15] MEDS ORDERED: Phosphorus #1 250 MG Tab PO SCH (12:00)
[2020-01-15] MEDS: metroNIDAZOLE 250 MG Tab PO SCH (21:54)
[2020-01-15] MEDS: Ciprofloxacin 500 MG Tab PO SCH (21:55)
[2020-01-16] MEDS: Ketorolac 30 MG/ML SDV IVPUSH SCH ×2 (01:15→05:51)
[2020-01-16] MEDS: Cyclobenzaprine 5 MG Tab PO SCH (05:30)
[2020-01-16] MEDS: metroNIDAZOLE 250 MG Tab PO SCH ×2 (05:30→09:25)
[2020-01-16 06:46] LABS: BLOOD UREA NITROGEN,BUN 6 mg/dL (7.0-18.0); CARBON DIOXIDE,CO2 26.9 mmol/L (21.0-32.0); CHLORIDE,CL 102 mmol/L (98-107); GLUCOSE RANDOM 86 mg/dL (74-106); POTASSIUM,K 3.1 mmol/L (3.5-5.1); SODIUM,NA 138 mmol/L (136-145)
[2020-01-16 08:09] VITALS: BP 123/81; PULSE 83
[2020-01-16] MEDS: Ciprofloxacin 500 MG Tab PO SCH (08:10)
[2020-01-16] MEDS: Polyethylene Glycol 3350 Powder 17 GM Packet PO SCH (08:10)
[2020-01-16] MEDS: Nicotine 14 MG/24 Hr Patch TRDERM SCH (08:11)
[2020-01-16] MEDS: Acetaminophen/oxyCODONE 325-5 MG Tab PO PRN (08:23)
--- NOTE | 2020-01-17 07:52 | PCM.DCSUM1 ---
Discharge Summary - Hospital Course Free Text/Narrative:: Patient is a 34-year-old female who presented with acute cholecystitis. She was admitted for pain control IV antibiotics and IV fluid resuscitation. The next day she was taken for a laparoscopic converted to open cholecystectomy. Due to the severe inflammation around her gallbladder I was unable to complete it safely laparoscopically. Postoperatively she had her pain controlled with IV Dilaudid and [place]. She received some doses of IV morphine overnight due to an order that had been left over in the chart from the ER. She did not receive IV Dilaudid and IV morphine at the same time. The IV morphine was taken off her chart. I saw the patient early the next morning due to concerns for delirium. The patient was not delirious but was upset about her care. After visiting with the patient in clarifying miscommunications, she felt better. Her Roman catheter was removed and I added IV Toradol to her pain regimen which seemed to help. She is given MiraLAX for bowel regimen. That evening she had a bowel movement. Her drain output decreased over her hospital stay and the drain was removed on postop day #2. She was kept on IV Zosyn given that the gallbladder appeared to have purulent contents. She was switched over to Cipro and Flagyl. On postop day 2 her white count was within normal range. Her LFTs were normal other than a slightly elevated AST at 50. She was ambulating without difficulty and tolerating a regular diet. She was cleared for discharge. - Discharge Data Discharge Date: 01/16/20 Discharge Disposition: Home, Self-Care 01 Condition: Stable - Referral to Home Health Primary Care Physician: Nicole Albarado MD - Discharge Diagnosis/Problem(s) (1) Acute cholecystitis SNOMED Code(s): 69839964 ICD Code: K81.0 - ACUTE CHOLECYSTITIS Status: Acute - Patient Summary/Data Operative Procedure(s) Performed: Laparoscopic converted to open cholecystectomy - Patient Instructions Diet: Regular Diet as Tolerated Diet, Other: No super greasy food for the next month. Activity: No Lifting Over 20 Pounds (for six weeks after surgery ), Rest and Relax Today Driving: Do Not Drive (for one week after surgery or while taking narcotic ) Showering/Bathing: May Shower, No Tub Bathing/Swimming (for 2 weeks ) Notify Provider of: Fever, Increased Pain, Swelling and Redness, Drainage, Nausea and/or Vomiting Other/Special Instructions: -Rest and relax at home for the next 2 weeks. Ok to return to work after this, but no lifting >20lbs for six weeks after your surgery. -You will find that for the next month small activies make you very tired. Take frequent breaks and naps. -Ok for your appetite to be not as great as it was before surgery. Eat small frequent meals and sip on fluids throughout the day. - Discharge Plan *PRESCRIPTION DRUG MONITORING PROGRAM REVIEWED*: Yes *COPY OF PRESCRIPTION DRUG MONITORING REPORT IN PATIENT CHAD: Yes Prescriptions/Med Rec: Ciprofloxacin [Ciprofloxacin HCl] 500 mg PO BID #8 tablet Cyclobenzaprine [Flexeril] 5 mg PO TID #20 tablet metroNIDAZOLE 250 mg PO Q6H #16 tablet Home Medications: Home Meds Ciprofloxacin [Ciprofloxacin HCl] 500 mg PO BID #8 tablet 01/16/20 [Rx] Cyclobenzaprine [Flexeril] 5 mg PO TID #20 tablet 01/16/20 [Rx] metroNIDAZOLE 250 mg PO Q6H #16 tablet 01/16/20 [Rx] Patient Handouts: Cyclobenzaprine tablets, Open Cholecystectomy, Acetaminophen ; Oxycodone capsules, Open Cholecystectomy, Care After, Cholecystitis, Easy-to- Read, Ketorolac tablets, Ciprofloxacin tablets, Metronidazole tablets or capsules Referrals: Zeenat Buckner MD [Physician] - 01/24/20 9:00 am Nicole Albarado MD [Primary Care Provider] - - Discharge Summary/Plan Comment DC Time >30 min.: No - General Info Functional Status: Reports: Pain Controlled, Tolerating Diet, Ambulating - Review of Systems General: Reports: No Symptoms HEENT: Reports: No Symptoms Pulmonary: Reports: No Symptoms Cardiovascular: Reports: No Symptoms Gastrointestinal: Reports: Abdominal Pain (along RUQ), Decreased Appetite, Flatus. Denies: Nausea, Vomiting Genitourinary: Reports: No Symptoms Musculoskeletal: Reports: No Symptoms Skin: Reports: Bruising - Patient Data Vitals - Most Recent: Last Vital Signs Temp 37.2 C 01/16/20 08:00 Pulse 83 01/16/20 08:00 Resp 16 01/16/20 08:00 BP 123/81 01/16/20 08:00 Pulse Ox 95 01/16/20 08:00 Weight - Most Recent: 89.1 kg [id number] Results - Last 24 hrs: Microbiology 01/14/20 09:40 Tissue Culture - Final Gallbladder Fluid - Bile No Growth Med Orders - Current: Current Medications Discontinued Medications Hydrocodone Bitart/Acetaminophen ([place] 325-5 Mg) 2 tab PO Q4H PRN PRN Reason: Pain (moderate 4-6) Bupivacaine HCl (Marcaine 0.5%) Confirm Administered Dose 30 ml .ROUTE .STK-MED ONE Stop: 01/14/20 08:30 Bupivacaine HCl (Marcaine 0.5%) Confirm Administered Dose 120 ml .ROUTE .STK- MED ONE Stop: 01/14/20 10:09 Cefazolin Sodium (Ancef) 1 gm IV .STK-MED ONE Stop: 01/13/20 18:33 Ciprofloxacin (Ciprofloxacin Hcl) 500 mg PO BID [facility] Last Admin: 01/16/20 08:10 Dose: 500 mg Cyclobenzaprine HCl (Flexeril) 5 mg PO TID [facility] Last Admin: 01/16/20 05:30 Dose: 5 mg Dexamethasone (Dexamethasone) Confirm Administered Dose 20 mg .ROUTE .STK-MED ONE Stop: 01/14/20 09:18 Diphenhydramine HCl (Benadryl) 25 mg IVPUSH Q4H PRN PRN Reason: Itching Last Admin: 01/15/20 21:10 Dose: 25 mg Ephedrine Sulfate (Ephedrine Sulfate) Confirm Administered Dose 50 mg .ROUTE .STK-MED ONE Stop: 01/14/20 11:20 Famotidine (Pepcid) 20 mg IVPUSH ONETIME ONE Stop: 01/13/20 15:05 Last Admin: 01/13/20 15:17 Dose: 20 mg Fentanyl (Sublimaze) Confirm Administered Dose 250 mcg .ROUTE .STK-MED ONE Stop: 01/14/20 08:39 Glycopyrrolate (Robinul) Confirm Administered Dose 0.2 mg .ROUTE .STK-MED ONE Stop: 01/14/20 11:16 Hydromorphone HCl (Dilaudid) 0.5 mg IVPUSH Q1H PRN PRN Reason: Pain (severe 7-10) Last Admin: 01/14/20 07:36 Dose: 0.5 mg Hydromorphone HCl (Dilaudid) Confirm Administered Dose 2 mg .ROUTE .STK-MED ONE Stop: 01/14/20 10:12 Hydromorphone HCl (Dilaudid) 0.5 mg IVPUSH Q2H PRN PRN Reason: Pain (severe 7-10) Last Admin: 01/15/20 15:08 Dose: 0.5 mg Sodium Chloride (Normal Saline) 1,000 mls @ 999 mls/hr IV BOLUS ONE Stop: 01/13/20 16:03 Last Admin: 01/13/20 15:17 Dose: 999 mls/hr Sodium Chloride (Normal Saline) 1,000 mls @ 125 mls/hr IV ASDIRECTED [facility] Last Admin: 01/13/20 18:03 Dose: 125 mls/hr Lactated Ringer's (Ringers, Lactated) 1,000 mls @ 150 mls/hr IV ASDIRECTED [facility] Last Infusion: 01/15/20 03:27 Dose: 150 mls/hr Piperacillin Sod/Tazobactam (Sod 3.375 gm/ Sodium Chloride) 50 mls @ 100 mls/ hr IV Q6H [facility] Last Admin: 01/15/20 18:05 Dose: 100 mls/hr Acetaminophen 1,000 mg/ Premix 100 mls @ 400 mls/hr IV NOW ONE Stop: 01/14/20 12:12 Last Admin: 01/14/20 13:50 Dose: Not Given Magnesium Sulfate 4 gm/ Premix 100 mls @ 50 mls/hr IV ONETIME ONE Stop: 01/15/20 09:08 Last Admin: 01/15/20 07:31 Dose: 50 mls/hr Iopamidol (Isovue-370 (76%)) 100 ml IVPUSH ONETIME ONE Stop: 01/13/20 18:17 Last Admin: 01/13/20 18:16 Dose: 100 ml Ketorolac Tromethamine (Toradol) 30 mg IVPUSH Q6H [facility] Stop: 01/20/20 05:57 Last Admin: 01/16/20 05:51 Dose: Not Given Lidocaine (Xylocaine-Mpf 2%) Confirm Administered Dose 5 ml .ROUTE .STK-MED ONE Stop: 01/14/20 08:43 Metronidazole (Metronidazole) 250 mg PO Q6H [facility] Last Admin: 01/16/20 09:25 Dose: 250 mg Midazolam HCl (Versed 1 Mg/Ml) Confirm Administered Dose 2 mg .ROUTE .STK-MED ONE Stop: 01/14/20 08:39 Morphine Sulfate (Morphine) 4 mg IVPUSH ONETIME ONE Stop: 01/13/20 15:05 Last Admin: 01/13/20 15:17 Dose: 4 mg Morphine Sulfate (Morphine) 4 mg IVPUSH Q2H PRN PRN Reason: Pain (moderate 4-6) Last Admin: 01/14/20 22:51 Dose: 4 mg Nicotine (Habitrol) 14 mg TRDERM DAILY [facility] Last Admin: 01/14/20 13:59 Dose: Not Given Nicotine (Habitrol) 14 mg TRDERM DAILY [facility] Last Admin: 01/16/20 08:11 Dose: 14 mg Ondansetron HCl (Zofran) 4 mg IVPUSH ONETIME ONE Stop: 01/13/20 15:04 Last Admin: 01/13/20 15:17 Dose: 4 mg Ondansetron HCl (Zofran) 4 mg IVPUSH Q6H PRN PRN Reason: Nausea/Vomiting Ondansetron HCl (Zofran) Confirm Administered Dose 4 mg .ROUTE .STK-MED ONE Stop: 01/14/20 09:18 Oxycodone/Acetaminophen (Percocet 325-5 Mg) 2 tab PO Q4H PRN PRN Reason: Pain (moderate 4-6) Last Admin: 01/16/20 08:23 Dose: 2 tab Polyethylene Glycol (Miralax) 17 gm PO DAILY [facility] Last Admin: 01/16/20 08:10 Dose: 17 gm Propofol (Diprivan 20 Ml) Confirm Administered Dose 200 mg .ROUTE .STK-MED ONE Stop: 01/14/20 08:39 Rocuronium [place] (Zemuron) Confirm Administered Dose 100 mg .ROUTE .STK-MED ONE Stop: 01/14/20 08:43 Scopolamine (Transderm-Scop) 1.5 mg TRDERM Q72H [facility] Last Admin: 01/13/20 20:41 Dose: 1.5 mg Sodium Chloride (Saline Flush) 2.5 ml FLUSH ASDIRECTED PRN PRN Reason: Keep Vein Open Last Admin: 01/13/20 18:02 Dose: 2.5 ml Sodium Chloride (Saline Flush) 10 ml FLUSH ASDIRECTED PRN PRN Reason: Keep Vein Open Last Admin: 01/13/20 18:02 Dose: 10 ml Sodium Chloride (Saline Flush) 2.5 ml FLUSH ASDIRECTED PRN PRN Reason: Keep Vein Open Last Admin: 01/13/20 18:02 Dose: 2.5 ml Sodium Phosphate (Neutra-Phos) 250 mg PO QID PHILIP Sodium Phosphate (Neutra-Phos) 250 mg PO ONETIME ONE Stop: 01/15/20 07:11 Last Admin: 01/15/20 07:31 Dose: 250 mg - Exam Quality Assessment: Reports: Supplemental Oxygen General: Reports: Alert, Oriented, Cooperative HEENT: Reports: Pupils Equal, Pupils Reactive Lungs: Reports: Clear to Auscultation, Normal Respiratory Effort Cardiovascular: Reports: Regular Rate, Regular Rhythm GI/Abdominal Exam: Normal Bowel Sounds, Soft, No Distention, No Mass, Tender ( RUQ), Other (ecchymosis along incisions ) Back Exam: Reports: Normal Inspection, Full Range of Motion Extremities: Normal Inspection, Normal Range of Motion
== END 2020-01-16 09:45 | disposition home or self-care (01) | DRG 263 ==
LOC: MW.ED 14:29 → MW.MS 18:31 → OBSVTOIN 01-14 11:58
PROVIDERS: ADMIT Surgery; ATTEND Surgery
PROC: 0FT40ZZ Resection of Gallbladder, Open Approach (ICD-10-PCS; principal; 2020-01-14)
PROC: 0FJ44ZZ Inspection of Gallbladder, Percutaneous Endoscopic Approach (ICD-10-PCS; 2020-01-14)
DX: K81.0 Acute cholecystitis (principal); F17.210 Nicotine dependence, cigarettes, uncomplicated; Z53.31 Laparoscopic surgical procedure converted to open procedure; Z79.899 Other long term (current) drug therapy; Z90.89 Acquired absence of other organs; R74.8 Abnormal levels of other serum enzymes
CPT/HCPCS: 00790; 36415; 51702; 74177; 74177-26; 76705; 76705-26; 80053; 81001; 81025; 83690; 83735; 84100; 85025; 85027; 87070; 96361; 96365; 96367; 96375; 96376; 99283; 99285-25; A9270-GY; J0690; J1100; J1170; J1200; J1885; J2001; J2250; J2270; J2405; J2543; J2704; J3010; J3475; J3490; J7030; J7050; J7120; Q9967

== ENCOUNTER 2020-03-12 08:40 | Emergency (ER) | payer BC, OTHER ==
[2020-03-12] MEDS ORDERED: Albuterol 8 GM Inhaler INH ONE (09:02)
[2020-03-12] MEDS ORDERED: predniSONE 20 MG Tab PO ONE (09:02)
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
--- NOTE | 2020-03-12 09:38 | CR ---
INDICATION: Dyspnea. COMPARISON: Chest x-ray dated 06 June 2016. FINDINGS: PA and lateral chest x-rays show a normal cardiac silhouette. The lungs show no focal pulmonary opacities. Sharp pleural margins. No pneumothorax. IMPRESSION: No evidence of acute pulmonary abnormalities. Dictated by Zain Crum MD @ 03/12/2020 9:38:37 AM Dictated by: Zain Crum MD @ 03/12/2020 09:38:45 (Electronically Signed)
[2020-03-12 10:17] LABS: BLOOD UREA NITROGEN,BUN 9 mg/dL (7.0-18.0); CARBON DIOXIDE,CO2 25.2 mmol/L (21.0-32.0); CHLORIDE,CL 102 mmol/L (98-107); GLUCOSE RANDOM 104 mg/dL (74-106); POTASSIUM,K 3.3 mmol/L (3.5-5.1); SODIUM,NA 141 mmol/L (136-145)
[2020-03-12] MEDS ORDERED: Iopamidol 755 MG/ML 50 ML Bottle IV ONE (11:21)
--- NOTE | 2020-03-12 11:56 | CT ---
CT chest Technique: Multiple axial sections through the chest were obtained. Intravenous contrast was utilized. Study performed as a pulmonary angiogram protocol. Findings: Pulmonary arteries are moderately well opacified. No filling defects are seen to indicate pulmonary embolism. Aorta shows no aneurysm. Visualized upper abdominal structures shows fatty infiltration within the liver. Mediastinum and hilar region show no adenopathy. No axillary adenopathy is identified. Minimal subpleural labs are noted within the right lung apex. Lungs show no acute parenchymal change. No pleural effusions are seen. No pneumothorax is identified. Bone window settings were reviewed which shows no acute osseous finding. Old healed right lower rib fracture is noted. Impression: 1. No findings of pulmonary embolism. 2. Fatty infiltration within the liver. Old healed right lower rib fracture. 3. Several small subpleural blebs within the right lung apex. 4. Nothing acute is appreciated on CT study of the chest. Diagnostic code #2 This report was dictated in MDT
[2020-03-12 14:25] VITALS: BP 135/94; PULSE 74
== END 2020-03-12 12:44 | disposition home or self-care (01) ==
LOC: MW.ED 08:40
DX: J40 Bronchitis, not specified as acute or chronic (principal); F17.210 Nicotine dependence, cigarettes, uncomplicated; Z88.5 Allergy status to narcotic agent; Z20.828 Contact with and (suspected) exposure to other viral communicable diseases
CPT/HCPCS: 36415; 71046; 71275; 80048; 84484; 85025; 85379; 87635; 93005; 99285; A9270; Q9967; 99282; U0002

== ENCOUNTER 2020-03-27 21:59 | Emergency (ER) | payer SELFPAY ==
[2020-03-27] MEDS ORDERED: Sodium Chloride 0.9% 2.5 ML Syringe FLUSH PRN (22:55)
[2020-03-27] MEDS ORDERED: Sodium Chloride 0.9% 10 ML Syringe FLUSH PRN (22:55)
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
[2020-03-27 23:35] LABS: BLOOD UREA NITROGEN,BUN 8 mg/dL (7.0-18.0); CARBON DIOXIDE,CO2 30.2 mmol/L (21.0-32.0); CHLORIDE,CL 101 mmol/L (98-107); GLUCOSE RANDOM 111 mg/dL (74-106); POTASSIUM,K 2.9 mmol/L (3.5-5.1); SODIUM,NA 141 mmol/L (136-145)
[2020-03-28] MEDS ORDERED: Potassium Chloride 10% 20 MEQ/15 ML Soln 30 ML UD Cup PO ONE (01:07)
[2020-03-28 01:25] VITALS: BP 116/89; PULSE 72
== END 2020-03-28 01:25 | disposition home or self-care (01) ==
LOC: MW.ED 21:59
DX: R55 Syncope and collapse (principal); E87.6 Hypokalemia; R20.2 Paresthesia of skin; R29.0 Tetany; F41.9 Anxiety disorder, unspecified; F17.210 Nicotine dependence, cigarettes, uncomplicated; Z88.5 Allergy status to narcotic agent
CPT/HCPCS: 36415; 80053; 84484; 85025; 93005; 99283; 99284-25; A9270-GY

== ENCOUNTER 2020-11-07 00:17 | Emergency (ER) | payer SELFPAY ==
[2020-11-07] MEDS ORDERED: LORazepam 1 MG Tab PO ONE (00:21)
[2020-11-07] MEDS ORDERED: LORazepam 1 MG Tab ONE (00:32)
[2020-11-07] MEDS ORDERED: diphenhydrAMINE 50 MG/ML SDV IVPUSH ONE (00:49)
[2020-11-07] MEDS ORDERED: Sodium Chloride 0.9% 1,000 ML IV ONE (01:03)
[2020-11-07 01:17] LABS: BLOOD UREA NITROGEN,BUN 10 mg/dL (7.0-18.0); CARBON DIOXIDE,CO2 24.3 mmol/L (21.0-32.0); CHLORIDE,CL 103 mmol/L (98-107); GLUCOSE RANDOM 108 mg/dL (74-106); SODIUM,NA 140 mmol/L (136-145)
[2020-11-07] MEDS ORDERED: Potassium Chloride Riders 40 MEQ in Premix Bag 1 BAG IV ONE (01:34)
[2020-11-07] MEDS ORDERED: Potassium Chloride 10% 20 MEQ/15 ML Soln 15 ML UD Cup PO ONE (01:34)
[2020-11-07] MEDS ORDERED: Calcium Gluconate 10% 1 GM/10 ML SDV IV STA (01:34)
[2020-11-07] MEDS ORDERED: Potassium Chloride 10% 20 MEQ/15 ML Soln 30 ML UD Cup ONE (02:10)
[2020-11-07] MEDS ORDERED: Potassium Chloride 10% 20 MEQ/15 ML Soln 30 ML UD Cup PO ONE (02:18)
[2020-11-07] MEDS ORDERED: Sodium Chloride 0.9% 1,000 ML IV STA (02:33)
[2020-11-07 06:30] VITALS: BP 117/80; PULSE 81
--- NOTE | 2020-11-07 06:42 | EDM.PDOC ---
ED HPI GENERAL MEDICAL PROBLEM - General Chief Complaint: Cardiovascular Problem Stated Complaint: RAPID HEART RATE Time Seen by Provider: 11/07/20 00:21 - History of Present Illness INITIAL COMMENTS - FREE TEXT/NARRATIVE: CHIEF COMPLAINT(S): Increased heart rate HISTORY OF PRESENT ILLNESS: This is a 34-year-old woman with a past medical history of panic attack and anxiety who comes to the emergency department with a chief complaint of increased heart rate. The patient states that after eating dinner and having a couple drinks she went to lie down and she felt like her heart was beating really fast. She states that she was not exerting herself. She states that she felt her heart racing but denies any chest pain, shortness of breath, diaphoresis, nausea or vomiting. She states that she has a Fitbit and her resting heart rate is 55 and when she looked at her watch her heart rate was over 200. She states that she was trying to relax herself however it continued to speed up. She states that she does have a history of panic attacks and was just recently prescribed a medication. She states that her boyfriend told her to take the medication however she was concerned so she came to the emergency department. She states that she did become flushed and her skin did turn red and her ears became hot. She denies any other symptoms. She denies any fevers, chills, abdominal pain. Of note:. She states that she has been doing intermittent fasting where currently she is at 40 hours with fasting but did eat tonight. She states that she drinks approximately 1 L of fluids per day and uses salt and potassium supplementation for this. She states that she was admitted in the past for electrolyte abnormalities. REVIEW OF SYSTEMS: Constitutional: Denies fever, chills. Eyes: Denies eye pain Ears, Nose, Mouth, & Throat: Denies earache Cardiovascular: Positive for palpitations. Denies chest pain Respiratory: Denies shortness of breath Gastrointestinal: Denies Nausea, vomiting, diarrhea, hematochezia. Genitourinary: Denies hematuria Skin: Positive for skin flushing. MSK: Denies joint pain Neurological: Denies blurred vision, numbness, tingling, weakness Psychiatric: Positive for panic attacks/anxiety PAST MEDICAL HISTORY: As per history of present illness and as reviewed below otherwise noncontributory. SURGICAL HISTORY: As per history of present illness and as reviewed below otherwise noncontributory. SOCIAL HISTORY: As per history of present illness and as reviewed below otherwise noncontributory. FAMILY HISTORY: As per history of present illness and as reviewed below otherwise noncontributory. EXAMINATION OF ORGAN SYSTEMS/BODY AREAS: Constitutional: Blood pressure is 146/100, heart rate 148, respiratory rate 20 with an oxygen saturation of 96% on room air. Temperature 36.0 General: Anxious appearing young woman but is in no acute distress Psychiatric: Appears anxious with mildly pressured speech. Eyes: No scleral icterus or conjunctival erythema ENMT: Dry mucous membranes. No pharyngeal erythema patient has [place] Cardiovascular: Tachycardic but regular. No gallops, murmurs, or rubs. Bilateral upper extremity pulses symmetric and intact. No peripheral edema. No JVD. Respiratory: Lungs clear to auscultation bilaterally. No wheezes, rales, or rhonchi. Gastrointestinal: Soft, non-tender, non-distended. Normoactive bowel sounds Genitourinary: No suprapubic tenderness Musculoskeletal: Normal range of motion. Skin: No lesions or abrasions. Skin does not appear to be flushed at this time. Neurological: Alert, GCS 15 MEDICAL DECISION MAKING AND COURSE IN THE ED WITH INTERPRETATION/REVIEW OF DIAGNOSTIC STUDIES: This is a 34-year-old woman with a past medical history of panic attacks/anxiety who is currently on a fast with a past medical history of prior electrolyte abnormalities requiring admission who comes to the emergency department with acute palpitations who is tachycardic and hypertensive and appears anxious. We did obtain an EKG which did not reveal any acute signs of ischemia. At this time I do believe this is possibly due to her panic disorder we will provide the patient with 1 mg of p.o. Ativan and 1 L of normal saline given the dehydration on examination. I do believe there is a component of dehydration given the fasting. Given the reported skin flushing we will provide the patient with 50 mg of IV Benadryl. Will obtain labs including CBC, CMP. Time: 0015 Twelve-lead EKG interpreted by myself. Sinus tachycardia at a rate of 129 beats per minute. Right axis. MD interval is 140 ms. QRS duration is [address] segments are normal without elevations or depressions. No T wave inversions there is a Q wave in V2 and 1. Hypertrophy not noted. There is prolonged QTC at 515. Other than the prolonged QTC this is unchanged from prior EKG dated 03/12/2020 interpretation: Sinus tachycardia Laboratory: CBC reveals hemoconcentration with a hemoglobin of 16.1 and hematocrit of 46.3. CMP reveals hypokalemia at 3.0, hypocalcemia at 8.1, mild transaminitis with an AST of 44 and ALT of 72 and alkaline phosphatase of 141. Albumin is normal at 4.2. After labs I did provide the patient with potassium supplementation and calcium supplementation. At this time of reevaluation her heart rate had improved and she appeared more calm. The patient was observed in the emergency department while administering electrolyte replacement. The patient continued to remain stable and her heart rate slowly returned to normal. I do believe this was likely secondary to a combination of dehydration from the fasting and a panic/anxiety attack. I did discuss with her that she should use the medication prescribed for her for her anxiety when she needs it. I discussed that I would not recommend fasting for as long as she continues to fast. She states that she does it because of her prior history of cholecystectomy. I did discuss with her that given the electrolyte abnormalities if she is going to continue doing the fasting which I do not recommend that she should continue with electrolyte supplementation. She is to follow-up with her primary care for physician for further monitoring and treatment of this. She is to return for any new or worsening symptoms. She was amenable discharge at this time and had no further questions DISPOSITION: The patient was discharged home in stable condition. The patient will follow up with primary care physician in 1 week CONDITION: Fair PROCEDURES: None FINAL IMPRESSION(S)/DIAGNOSES: 1. Acute palpitations likely secondary to panic/anxiety attack versus dehydration 2. Acute hypokalemia likely secondary to fasting 3. Acute hypocalcemia likely secondary to fasting Michael Sepulveda M.D. - Related Data Allergies Allergy/AdvReac Type Severity Reaction Status Date / Time hydrocodone Allergy Rash Verified 11/07/20 00:23 Home Meds: Home Meds . 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 Hematologic History: Reports: None Immunologic History: Reports: None Oncologic (Cancer) History: Reports: None Dermatologic History: Reports: None - Infectious Disease History Infectious Disease History: Reports: None - Past Surgical History Head Surgeries/Procedures: Reports: None HEENT Surgical History: Reports: Adenoidectomy, Tonsillectomy GI Surgical History: Reports: Cholecystectomy Social & Family History - Family History Family Medical History: No Pertinent Family History - Caffeine Use Caffeine Use: Reports: None - Recreational Drug Use Recreational Drug Use: No ED ROS GENERAL - Review of Systems Review Of Systems: See Below ED EXAM, GENERAL - Physical Exam Exam: See Below Course - Vital Signs Last Recorded V/S: Last Vital Signs Temp 36.0 C L 11/07/20 00:20 Pulse 81 11/07/20 06:29 Resp 16 11/07/20 06:29 BP 117/80 11/07/20 06:29 Pulse Ox 95 11/07/20 06:29 - Orders/Labs/Meds Orders: Active Orders 24 hr Category Date Time Status EKG 12 Lead [EKG Documentation Completion] [RC] STAT Care 11/07/20 12:42 Active Labs: Laboratory Tests 11/07/20 11/07/20 Range/Units 00:24 00:24 WBC 10.22 (4.0-11.0) K/uL RBC 4.94 (4.30-5.90) M/uL Hgb 16.1 H (12.0-16.0) g/dL Hct 46.3 H (36.0-46.0) % MCV 93.7 (80.0-98.0) fL MCH 32.6 H (27.0-32.0) pg MCHC 34.8 (31.0-37.0) g/dL RDW Std Deviation 44.5 (28.0-62.0) fl RDW Coeff of Marielena 13 (11.0-15.0) % Plt Count 267 (150-400) K/uL MPV 10.20 (7.40-12.00) fL Neut % (Auto) 57.7 (48.0-80.0) % Lymph % (Auto) 31.8 (16.0-40.0) % [place]ard % (Auto) 8.3 (0.0-15.0) % Eos % (Auto) 1.7 (0.0-7.0) % Baso % (Auto) 0.5 (0.0-1.5) % Neut # (Auto) 5.9 H (1.4-5.7) K/uL Lymph # (Auto) 3.3 H (0.6-2.4) K/uL [place]ard # (Auto) 0.9 H (0.0-0.8) K/uL Eos # (Auto) 0.2 (0.0-0.7) K/uL Baso # (Auto) 0.1 (0.0-0.1) K/uL Nucleated RBC % 0.0 /100WBC Nucleated RBCs # 0 K/uL Sodium 140 (136-145) mmol/L Potassium 3.0 L (3.5-5.1) mmol/L Chloride 103 (98-107) mmol/L Carbon Dioxide 24.3 (21.0-32.0) mmol/L BUN 10 (7.0-18.0) mg/dL Creatinine 0.8 (0.6-1.0) mg/dL Est Cr Clr Drug Dosing TNP Estimated GFR (MDRD) > 60.0 ml/min Glucose 108 H (74-106) mg/dL Calcium 8.1 L (8.5-10.1) mg/dL Magnesium 2.1 (1.8-2.4) mg/dL Total Bilirubin 0.6 (0.2-1.0) mg/dL AST 44 H (15-37) IU/L ALT 72 H (14-63) IU/L Alkaline Phosphatase 141 H (46-116) U/L Total Protein 7.8 (6.4-8.2) g/dL Albumin 4.2 (3.4-5.0) g/dL Globulin 3.6 (2.6-4.0) g/dL Albumin/Globulin Ratio 1.2 (0.9-1.6) Meds: Medications Discontinued Medications Generic Name Dose Route Start Last Admin Trade Name Freq PRN Reason Stop Dose Admin Calcium Gluconate 1 gm 11/07/20 01:34 11/07/20 02:18 Calcium Gluconate IV 11/07/20 01:35 1 gm ONETIME STA Administration Diphenhydramine HCl 50 mg 11/07/20 00:49 11/07/20 00:54 Benadryl IVPUSH 11/07/20 00:50 50 mg ONETIME ONE Administration Sodium Chloride 1,000 mls @ 999 mls/hr 11/07/20 01:03 11/07/20 01:08 Normal Saline IV 11/07/20 02:03 999 mls/hr .BOLUS ONE Administration Potassium Chloride 40 meq/ 100 mls @ 25 mls/hr 11/07/20 01:34 11/07/20 02:18 Premix IV 11/07/20 05:33 25 mls/hr ONETIME ONE Administration Sodium Chloride 1,000 mls @ 125 mls/hr 11/07/20 02:33 11/07/20 02:35 Normal Saline IV 11/07/20 10:32 125 mls/hr NOW STA Administration Lorazepam 1 mg 11/07/20 00:21 11/07/20 00:30 Ativan PO 11/07/20 00:22 1 mg ONETIME ONE Administration Lorazepam Confirm 11/07/20 00:32 11/07/20 00:41 Ativan Administered 11/07/20 00:33 Not Given Dose 1 mg .ROUTE .STK-MED ONE Potassium Chloride 40 meq 11/07/20 01:34 11/07/20 02:19 Potassium Chloride Solution PO 11/07/20 01:35 Not Given ONETIME ONE Potassium Chloride Confirm 11/07/20 02:10 11/07/20 02:17 Potassium Chloride Administered 11/07/20 02:11 Not Given Dose 40 meq .ROUTE .STK-MED ONE Potassium Chloride 40 meq 11/07/20 02:18 11/07/20 02:18 Potassium Chloride PO 11/07/20 02:19 40 meq ONETIME ONE Administration Departure - Departure Time of Disposition: 06:42 Disposition: Home, Self-Care 01 Condition: Fair Clinical Impression: Hypokalemia due to excessive gastrointestinal loss of potassium, Hypocalcemia, Palpitations Instructions: Palpitations, [id number] Referrals: Nicole Albarado MD [Primary Care Provider] - Forms: ED Department Discharge Additional Instructions: You evaluate today on an emergent basis. At this time I do believe there was a component of anxiety/panic attack as the cause of your increased heart rate. Your work-up was negative except for low potassium and low calcium. I do recommend refraining from long-term fasting. I do recommend a full and healthy diet. We did discuss that after removing gallbladders you can have softer stools. I do recommend using fiber and other supplements such as bananas and oatmeal to help with this. We did supplement your electrolytes here today. I do recommend that you follow-up with your primary care physician for further monitoring. If you have any new or worsening symptoms please return to the emergency department. [facility] [address] [place] [id number] [id number] The patient is informed of any results of their evaluation and diagnostic workup and all questions are answered. They are given discharge instructions and return precautions. The patient is stable for discharge. The patient states they understand and agree with the plan and that they will return if their symptoms get worse or if they have any new concerns. The following information is given to patients seen in the emergency department who are being discharged to home. This information is to outline your options for follow-up care. We provide all patients seen in our emergency department with a follow-up referral. The need for follow-up, as well as the timing and circumstances, are variable depending upon the specifics of your emergency department visit. If you don't have a primary care physician on staff, we will provide you with a referral. We always advise you to contact your personal physician following an emergency department visit to inform them of the circumstance of the visit and for follow-up with them and/or the need for any referrals to a consulting specialist. The emergency department will also refer you to a specialist when appropriate. This referral assures that you have the opportunity for follow-up care with a specialist. All of these measure are taken in an effort to provide you with optimal care, which includes your follow-up. Under all circumstances we always encourage you to contact your private physician who remains a resource for coordinating your care. When calling for follow-up care, please make the office aware that this follow-up is from your recent emergency room visit. If for any reason you are refused follow-up, please contact the [facility] Emergency Department at and asked to speak to the emergency department charge nurse. Sepsis Event Note (ED) - Evaluation Sepsis Screening Result: No Definite Risk - My Orders Last 24 Hours: My Active Orders 11/07/20 12:42 EKG 12 Lead [EKG Documentation Completion] [RC] STAT - Assessment/Plan Last 24 Hours: My Active Orders 11/07/20 12:42 EKG 12 Lead [EKG Documentation Completion] [RC] STAT
== END 2020-11-07 06:48 | disposition home or self-care (01) ==
LOC: MW.ED 00:17
DX: E87.6 Hypokalemia (principal); E83.51 Hypocalcemia; Z88.5 Allergy status to narcotic agent
CPT/HCPCS: 36415; 80053; 83735; 85025; 93005; 96365; 96366; 96375; 99285; A9270; J0610; J1200; J3480; J7030; 93010; 99284